=== PATIENT | female | born 1950 | race Caucasian/White ===

== ENCOUNTER → 2018-06-05 09:34 | Outpatient (CLI) | payer MEDICARE, BC, SELFPAY ==
--- OUTSIDE RECORDS SUMMARY | 2018-08-07 06:16 | XMS RPT_ITS | Clinical Summary ---
:1950 Author Organization [facility] Address [address] [place] [address] Phone Care Team Providers Name Role Phone Vidhya Snider Unavailable Unavailable Conditions or Problems Problem Problem Code Onset Status Entry Provider Comment Standard Annotate Name Date Date Description Family [id number] Jona Nelson Family history of (SNOMED CT) 07 14 Edilberto MURILLO history of cancer of cancer of colon colon Medications Medication Instructions Start Stop Generic Name NDC Provider Date Date GAVILYTE-C 240 Take as directed PEG [id number] Jona Nelson GM SOLR 3 [id number] Edilberto MURILLO [id number] LF OSTEO BI-FLEX two tablets once MISC NATURAL [id number] Jona Nelson ADV JOINT armand;y 3 PRODUCTS Edilberto MURILLO SHIELD TABS Medications Administered No information available. Allergies, Adverse Reactions, Alerts Observed no known allergies at Results Date Name Value Unit Range Flag Description Office Visit: LLQ abdominal pain MEDS REVIEW Done Documentation of current medications (procedure) FALLRSKASSES No Fall risk assessment MAMMOGRAM Normal Bilateral Breast Mammogram screening COLONOSCOPY Normal Colonoscopy (procedure) ALCOHOLCOUNS no Alcoholism counseling (procedure) ORALTOBACUSE Never Tobacco smoking status NHIS SMOK STATUS Never smoker Tobacco use [facility] Plan of Care Type Date Detail Appointment 01:10 PM Jona Casanova MD, [address], [address], [place], [address], Appointment 09:30 AM Jona Casanova MD, [address], [address], [place], [address], Pending order Colonoscopy Procedures No information available. Vital Signs Date Name Value Unit Description BMI (Body Mass Index) 31.07 kg/m2 Body Mass Index [Ratio] Body Temperature 98.3 [degF] temperature E&M Body Temperature 36.83 Nida temperature in centigrade E&M BP Diastolic 61 mm[Hg] blood pressure, diastolic - 8462-4 BP Systolic 91 mm[Hg] blood pressure, systolic - 8480-6 Heart Rate 84 /min pulse rate E&M - 8867-4 Height 64 [in_us] height E&M - 8302-2 Height 162.56 cm height in centimeters E&M Respiratory Rate 20 /min respiratory rate E&M - 9279-1 Weight Measured 181 [lb_av] weight E&M - 3141-9 Weight Measured 82.10 kg weight in kilograms E&M
--- OUTSIDE RECORDS SUMMARY | 2018-08-07 06:16 | XMS RPT_ITS | Clinical Summary ---
:1950 Author Organization [facility], [facility] Address [address] [place] [address] Phone Care Team Providers Name Role Phone Betsy Banegas MD Unavailable Conditions or Problems Problem Name Problem Onset Status Entry Provider Comment Standard Annotate Code Date Date Description Screening for 848779250 Active Betsy Stone Procedure HPV (SNOMED 05/15 05/[address]) on subject Screening for 411581945 Active Betsy Stone Screening for cervical (SNOMED 05/15 05/[address]) neoplasm of cervix Screeing for 980112206 Active Betsy Stone Screening for osteoporosis (SNOMED 05/15 05/[address]) Estrogen 159365437 Active Betsy Stone Decreased deficiency (SNOMED 05/15 05/[address]) level 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 26073415 Active Betsy Stone Gynecologic exam (SNOMED 05/15 05/[address]) Family history 641791667 Active Jona Nelson Family of cancer of (SNOMED 0 Edilberto MURILLO history of colon CT) cancer of colon Medications Medication Instructions Start Stop Generic Name NDC Provider Date Date GAVILYTE-C 240 Take as directed PEG [id number] Jona Nelson GM SOLR 3 [id number] Edilberto MURILLO [id number]-[id number] LF GAVILYTE-C 240 Take as directed / PEG 64890831136 Betsy Stone GM SOLR 3 02 [id number] Bassam MURILLO SL-QSWI-ZOAR LF OSTEO BI-FLEX two tablets once [facility] [id number] Jona Nelson ADV JOINT armand;y 3 PRODUCTS Edilberto MURILLO SHIELD TABS Medications Administered No information available. Allergies, Adverse Reactions, Alerts Observed no known allergies at Results Date Name Value Unit Range Flag Description Office Visit: LLQ abdominal pain ALCOHOLCOUNS no Alcoholism counseling (procedure) Office Visit: est annual MAMMOGRAM Normal Bilateral Breast Mammogram screening COLONOSCOPY Normal Colonoscopy (procedure) MEDS REVIEW Done Documentation of current medications (procedure) ORALTOBACUSE Never Tobacco smoking status NHIS SMOK STATUS Never smoker Tobacco use [facility] FALLRSKASSES No Fall risk assessment Lab Report: PAP I-G HPV Hi Risk ZZ-GE-unk Negative Negative GE use only - for LinkLogic import when terms are not otherwise specified Plan of Care Type Date Detail Pending order Dual-energy X-ray absorptiometry (DXA), bone density study, 1 or more sites; Pending order Colonoscopy Procedures Code Procedure Name Date Entry Date CPT-65979 Dual-energy X-ray absorptiometry (DXA), bone density study, 1 or more sites; Vital Signs Date Name Value Unit Description BMI (Body Mass Index) 31.17 kg/m2 Body Mass Index [Ratio] Body Temperature 98.2 [degF] temperature E&M Body Temperature 36.78 Nida temperature in centigrade E&M BP Diastolic 83 mm[Hg] blood pressure, diastolic - 8462-4 BP Systolic 146 mm[Hg] blood pressure, systolic - 8480-6 Heart Rate 74 /min pulse rate E&M - 8867-4 Height 64 [in_us] height E&M - 8302-2 Height 162.56 cm height in centimeters E&M Respiratory Rate 16 /min respiratory rate E&M - 9279-1 Weight Measured 181.6 [lb_av] weight E&M - 3141-9 Weight Measured 82.37 kg weight in kilograms E&M
--- OUTSIDE RECORDS SUMMARY | 2018-08-07 06:16 | XMS RPT_ITS | Clinical Summary ---
:1950 Author Organization [facility] Address [address] [place] [address] Phone Care Team Providers Name Role Phone VARINDER Payton RN, Gladis Pearl Unavailable Unavailable Conditions or Problems Problem Name Problem Onset Status Entry Provider Comment Standard Annotate Code Date Date Description Screening for 521821502 Active Betsy Stone Procedure HPV (SNOMED 05/15 05/[address]) on subject Screening for 198371254 Active Betsy Stone Screening for cervical (SNOMED 05/15 05/[address]) neoplasm of cervix Screeing for 393632503 Active Betsy Stone Screening for osteoporosis (SNOMED 05/15 05/[address]) Estrogen 967683486 Active Betsy Stone Decreased deficiency (SNOMED 05/15 05/[address]) level 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 58414277 Active Betsy Stone Gynecologic exam (SNOMED 05/15 05/[address]) Family history 256239263 Active Jona Nelson Family of cancer of (SNOMED Edilberto MURILLO history of colon CT) cancer of colon Medications Medication Instructions Start Stop Generic Name NDC Provider Date Date GAVILYTE-C 240 Take as directed PEG [id number] Jona Nelson GM SOLR 3 [id number]-DMD Edilberto MURILLO IC-GLCJ-GUCS LF GAVILYTE-C 240 Take as directed / PEG 67787658747 Betsy Stone GM SOLR 3 02 [id number]-QLZ Bassam MURILLO RF-LGOV-BTUV LF OSTEO BI-FLEX two tablets once [facility] [id number] Jona Nelson ADV JOINT armand;y 3 PRODUCTS [...] NHIS SMOK STATUS Never smoker Tobacco use [facility] FALLRSKASSES No Fall risk assessment Lab Report: PAP I-G HPV Hi Risk ZZ-GE-unk Negative Negative GE use only - for LinkLogic import when terms are not otherwise specified Plan of Care Type Date Detail Pending order Dual-energy X-ray absorptiometry (DXA), bone density study, 1 or more sites; Pending order Colonoscopy Procedures Code Procedure Name Date Entry Date CPT-64212 Dual-energy X-ray absorptiometry (DXA), bone density study, [...]
--- OUTSIDE RECORDS SUMMARY | 2018-08-07 06:16 | XMS RPT_ITS | Clinical Summary ---
:1950 Author Organization [facility], [facility] Address [address] [place] [address] Phone Care Team Providers Name Role Phone Betsy Banegas MD Unavailable Conditions or Problems Problem Name Problem Onset Status Entry Provider Comment Standard Annotate Code Date Date Description Screening for 552611017 Active Betsy Stone Procedure HPV (SNOMED 05/15 05/[address]) on subject Screening for 320331090 Active Betsy Stone Screening for cervical (SNOMED 05/15 05/[address]) neoplasm of cervix Screeing for 715090229 Active Betsy Stone Screening for osteoporosis (SNOMED 05/15 05/[address]) Estrogen 090020315 Active Betsy Stone Decreased deficiency (SNOMED 05/15 05/[address]) level 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 72881629 Active Betsy Stone Gynecologic exam (SNOMED 05/15 05/[address]) Family history 236462650 Active Jona Nelson Family of cancer of (SNOMED 0 Edilberto MURILLO history of colon CT) cancer of colon Medications Medication Instructions Start Stop Generic Name NDC Provider Date Date GAVILYTE-C 240 Take as directed PEG [id number] Jnoa Nelson GM SOLR 3 [id number] Edilberto MURILLO AJ-EIXU-VLJW LF GAVILYTE-C 240 Take as directed / PEG 39772766833 Betsy Stone GM SOLR 3 02 5318-JSA-DAR Bassam MURILLO UY-TFNZ-JEKC LF OSTEO BI-FLEX two tablets once [facility] NATURAL [id number] Jona Leslie ADV JOINT armand;y 3 PRODUCTS Edilberto MURILLO [...] NHIS SMOK STATUS Never smoker Tobacco use [facility] FALLRSKASSES No Fall risk assessment Plan of Care Type Date Detail Appointment 03:00 PM Betsy Banegas MD, [address] [facility], [address] Floor, [place], [address], Pending order Dual-energy X-ray absorptiometry (DXA), bone density study, 1 or more sites; Pending order Colonoscopy Procedures No information available. [...]
--- OUTSIDE RECORDS SUMMARY | 2018-08-07 06:16 | XMS RPT_ITS | Clinical Summary ---
:1950 Author Organization [facility], [facility] Address [address] [place] [phone] Phone Care Team Providers Name Role Phone Vidhya Snider Unavailable Unavailable Conditions or Problems Problem Problem Code Onset Status Entry Provider Comment Standard Annotate Name Date Date Description Family [id number] Jona Nelson Family history of (SNOMED CT) 07 14 Edilberto MURILLO history of cancer of cancer of colon colon Medications Medication Instructions Start Stop Generic Name NDC Provider Date Date GAVILYTE-C 240 Take as directed PEG [id number] Jona Nelson GM SOLR 3 [id number] Edilberto MURILLO HC-HDAY-OUGO LF OSTEO BI-FLEX two tablets once MISC NATURAL 08335855087 Jona Nelson ADV JOINT armand;y 3 PRODUCTS [...] NHIS SMOK STATUS Never smoker Tobacco use [facility] Plan of Care Type Date Detail Appointment 09:00 AM Jona Casanova MD, [address], [address], [place], [address], Appointment 03:00 PM Betsy Banegas MD, [address] [place] [address], Third Floor, [place], [address], Pending order Colonoscopy Procedures No information available. [...]
--- OUTSIDE RECORDS SUMMARY | 2018-08-07 06:16 | XMS RPT_ITS ---
:1950 Author Organization [facility] Care Team Providers Name Role Phone Cristopher Arriola Attending Unavailable Cristopher Arriola Primary Care Unavailable PROBLEMS PROBLEMS No Problem Records FoundPROCEDURES PROCEDURES No Procedure Records FoundRESULTS RESULTS Observed: 06/05/2018 Status: F Source: PANTHER CULTURE, URINE 9:38 AM [facility] REPOSITORY Urine Culture ORGANISM 1: Enterobacter aerogenes [place] Count >100,000 Enterobacter aerogenes: REACTION Cefazolin $ >=64 R Cefepime $ <=0.12 S Ceftazidime *NF <=1 S Ceftriaxone $ <=0.25 S Ciprofloxacin $ <=0.25 S Ertapenim $$$ <=0.12 S Gentamicin $ <=1 S Imipenem *NF 2 S Levofloxacin $ <=0.12 S Nitrofurantoin $ 64 I Piperacillin/Tazobactam $$ <=4 S Tobramycin $ <=1 S Trimethoprim/Sulfametho $ <=20 S (NF) indicates non-formulary drug at [facility]. Approval by Infectious Disease Specialist required before non-formulary drugs may be ordered and/or dispensed. Performed By: #### [id number] #### [facility] [address] [place], [address] ALLERGIES ALLERGIES DATE TYPE / CODE NAME / CODE REACTION SEVERITY SOURCE 02/26/2017 Drug No Known Unknown [facility] Allergy/4160 Allergies/F00 [facility] 78897(SNOMED 6855047(RXNOR Repository CT) M) ENCOUNTERS ENCOUNTERS ADMIT/DISCHARGE ACCOUNT ADMITTING ENCOUNTER LOCATION SOURCE NUMBER CLASS 06/05/2018 [id number] Ambulatory [address] ing:LABSPEC Repository PAYERS PAYERS ENCOUNTER GUARANTOR PAYER SUBSCRIBER SOURCE 06/05/2018 Eve Watson Primary [facility]ION [place] [id number] Insurance:MEDICARE TENNANTDOB[facility] [id number] Repository [id number]: [phone] [id number] [phone] () Date:2018-06-05 06/05/2018 Secondary [place] [place] Insurance:ANTHEMPolic TENNANTDOB: Community y Number: [id number] [id number] Repository Date:[id number] [id number] [place] [id number]: 06/05/2018 Tertiary NOT GIVENMICHOACANO Nuñez Insurance:SELF PAY [facility] Number: Effective Repository Date:2018-06-05
== END ==
PROVIDERS: Family Provider Family Medicine; PCP Family Medicine; Visit Provider Family Medicine
DX: N39.0 Urinary tract infection, site not specified (principal); R31.9 Hematuria, unspecified
CPT/HCPCS: 87077; 87086; 87088; 87186

== ENCOUNTER → 2018-07-22 10:11 | Outpatient (CLI) | payer MEDICARE, BC, SELFPAY ==
[2018-07-22 10:15] LABS: Mucous, Urine 0 SEEN /hpf (<or=2+)
[2018-07-22 12:56] LABS: Color, Urine Yellow (Yellow); Glucose, Dipstick Normal (Normal); Ketone-Dipstick Negative (Negative); Leukocyte Esterase-Dipstick 500 /ul (Negative); Nitrite-Dipstick Negative (Negative); Occult Blood-Urine 50 /ul (Negative); Protein-Dipstick 15 mg/dl (Negative); Specific Gravity, Urine 1.015 (1.002-1.030); Urine Bilirubin Dipstick Negative (Negative); Urine Clarity Sl. Cloudy (Clear); Urine Urobilinogen Normal (Normal)
[2018-07-22 13:02] LABS: Bacteria 2+ /hpf (None Seen); Red Blood Cells-Urine 0-5 SEEN /hpf (0-5); Squamous Epithelial Cells - UA 0-5 SEEN /hpf (5-10); White Blood Cells 25-50 SEEN /hpf (0-5)
== END ==
PROVIDERS: Family Provider Family Medicine; PCP Family Medicine; Visit Provider Family Medicine
DX: R31.9 Hematuria, unspecified (principal); N39.0 Urinary tract infection, site not specified
CPT/HCPCS: 81001; 87086; 87088; 87186

== ENCOUNTER → 2018-07-29 12:08 | Outpatient (CLI) | payer MEDICARE, BC, SELFPAY ==
--- NOTE | 2018-07-29 12:12 | BI_ITS ---
MAMMOGRAPHY - BILATERAL SCREENING 3-D GHASSAN SYNTHESIS REASON FOR EXAM: Female, 67 years old. Bilateral Screening 3-D tomosynthesis PERTINENT HISTORY: No significant family history. TECHNIQUE: 2-D mammograms and 3-D Ghassan synthesis of the breast (s) were performed. CAD was performed. COMPARISON: March 06, 2017 FINDINGS: The breast composition is almost entirely fat. Scattered benign calcifications are seen. No dense spiculated masses or suspicious microcalcifications are identified. No architectural distortion is identified. There is no skin thickening or retraction. There has been no significant change since the prior study. BI/SCREENING MAMM (CAD), BILAT IMPRESSION: No mammographic signs of malignancy. Routine yearly mammograms recommended. ASSESSMENT CATEGORY: BIRADS Category 2: Benign. A letter regarding these results will be sent to the patient by the facility within 30 days. FOLLOW UP RECOMMENDATION: Yearly follow up mammogram recommended. (A) Approximately 10% of breast cancers are not detected by mammography. A normal mammogram should not delay biopsy of a clinically suspicious abnormality. Electronically Signed: Alexx Hernandez MD at 13:39 EDT , Service support ,
== END ==
PROVIDERS: Family Provider Family Medicine; PCP Family Medicine; Referring Provider Family Medicine; Visit Provider Family Medicine
DX: Z12.31 Encounter for screening mammogram for malignant neoplasm of breast (principal)
CPT/HCPCS: 77063; 77067

== ENCOUNTER → 2018-08-05 16:38 | Outpatient (CLI) | payer MEDICARE, BC, SELFPAY ==
[2018-08-05 18:26] LABS: ALB/GLOB Ratio 0.8 RATIO (0.9-2.4); AST(SGOT) 24 U/L (15-37); Alanine Aminotransfer ALT/SGPT 27 U/L (13-56); Albumin, Serum 3.8 g/dL (3.2-5.0); Alkaline Phosphatase 103 U/L (45-117); Anion Gap 5 (5-15); BUN 17 mg/dL (7-18); BUN/Creat Ratio 18.4 RATIO (10-20); Calcium,Total 9.6 mg/dL (8.5-10.1); Chloride 105 mmol/L (98-107); Creatinine, Serum 0.92 mg/dL (0.55-1.02); EST Glomerular Filtration Rate 65 mL/min (>60); Est Glom Filt Rate - Afr Amer 78 mL/min (>60); Globulin 4.6 g/dL (2.2-4.2); Glucose 76 mg/dL (74-106); Lipase 160 U/L (73-393); Potassium 3.7 mmol/L (3.5-5.1); Protein, Total 8.4 g/dL (6.4-8.2); Sodium Level 140 mmol/L (136-145); Thyroid Stim Hormone (TSH) 2.64 uIU/mL (0.358-3.74)
[2018-08-07 17:38] LABS: Endomysial Antibody IgA Negative (Negative)
[2018-08-09 17:15] LABS: Immunoglobulin A 357 mg/dL (87-352); t-Transglutaminase IgA <2 U/mL (0-3)
== END ==
PROVIDERS: Family Provider Family Medicine; PCP Family Medicine; Visit Provider Family Medicine
DX: K52.9 Noninfective gastroenteritis and colitis, unspecified (principal); R10.32 Left lower quadrant pain; R11.0 Nausea
CPT/HCPCS: 36415; 80053; 82784; 83516; 83690; 84439; 84443; 86255

== ENCOUNTER → 2020-10-13 15:25 | Outpatient (CLI) | payer MEDICARE, BC, SELFPAY ==
--- NOTE | 2020-10-13 15:29 | BI_ITS ---
MAMMOGRAPHY - BILATERAL SCREENING REASON FOR EXAM: Female, 69 years old. Routine annual screening examination. PERTINENT HISTORY: Non-contributory. TECHNIQUE: Digital bilateral breast ghassan (3D mammographic acquisition) in the CC and MLO projections. 2-D mediolateral oblique (MLO) and craniocaudad (CC) views of both breasts were obtained. CAD: Full Field Digital Mammography with Computer Added Detection was performed. COMPARISON: Comparison is made with prior study of 07/29/2018 and 03/06/2017. FINDINGS: Breast Composition: There are scattered areas of fibroglandular density. There are no dominant masses or suspicious calcifications. Stable small benign appearing bilateral axillary lymph nodes. No other significant abnormalities are identified. There has been no significant change since the prior study. BI/SCRN MAMM (CAD)W/GHASSAN BILAT IMPRESSION: Stable bilateral screening mammogram. Yearly follow-up mammogram recommended. (A) ASSESSMENT CATEGORY: BIRADS Category 2: Benign. A letter regarding these results will be sent to the patient by the facility within 30 days. Approximately 10% of breast cancers are not detected by mammography. A normal mammogram should not delay biopsy of a clinically suspicious abnormality. [id number] Electronically Signed: Daryl Linares MD at 7:57 EDT , Service support ,
== END ==
PROVIDERS: PCP Family Medicine; Referring Provider Family Medicine; Visit Provider Family Medicine
DX: Z12.31 Encounter for screening mammogram for malignant neoplasm of breast (principal)
CPT/HCPCS: 77063; 77067

== ENCOUNTER 2020-12-28 15:47 | Inpatient (IN) | payer MEDICARE, BC, SELFPAY ==
[2020-12-28 15:49] VITALS: BP 166/98; PULSE 92; RESP 18; TEMP 37.2; O2SAT 97; BMI 30.5
--- NOTE | 2020-12-28 16:34 | TELEMED_ITS ---
SOC Telemed has confirmed receipt of a request for visit. This document confirms receipt of the order initiating the consult. To find the results of the consultation, please view the patient's reports for the scanned Telemed Consult.
--- NOTE | 2020-12-28 16:40 | EDS_ITS ---
HPI History of Present Illness Chief Complaint: Eye Problem Informant: patient and PCP (Dr. David) Onset/Context/Timing Location: Left Eye Onset: Weeks (1 (about 8d)) Context: Gradual Onset Timing: Continuous Current Severity: Moderate Maximum Severity: Severe Worsened by: nothing Narrative Narrative: Patient started having left eye pain and headaches that became severe, she saw her instrumentation controls engineer Dr. David and was diagnosed with herpes zoster of the left ophthalmic nerve branch only, she was started on Valtrex and later prednisone, she finished both yesterday. Symptoms are not as bad now but she started having diplopia, and was reevaluated today. He reports that she has developed a partial 6th nerve palsy and mild ptosis, concern that she may be developing a 3rd nerve palsy and these together give concern about involvement of the orbit and/or cavernous sinus for which admission to the hospital is warranted. He was unable to discuss with the neurologist, so we sent the patient to the hospital for all of this. At this time, the patient is having mo re trouble seeing out of the left eye because she was dilated in the office, she was not necessarily photophobic prior to that. Left eye pressure was 40 in the office according to the patient. She states she was given other drops. PFSH PFSH no medical history Home Medications [id number] [Osteo Bi-Flex Caplet] 2 ea PO DAILY 02/26/17 [History Last Taken Unknown] Allergy/AdvReac Type Severity Reaction Status Date / Time No Known Allergies Allergy Verified 12/28/20 15:50 Surgical History History of cholecystectomy History of hysteroscopy Social History Smoking Status: Never smoker ROS ROS ED Constitutional Constitutional ED: Denies chills or fever(s) Eyes Eyes: Reports as per HPI, change in vision, diplopia, eye pain and ptosis; Denies discharge from eye(s) ENT ENT ED: Denies discharge from eye(s), rhinorrhea or sore throat Cardiovascular Cardiovascular: Denies chest pain or palpitations Respiratory/Chest Respiratory/Chest: Denies cough or dyspnea Gastrointestinal Gastrointestinal: Denies abdominal pain, diarrhea, nausea or vomiting Genitourinary Genitourinary ED: Denies dysuria or hematuria Musculoskeletal Musculoskeletal: Denies back pain or neck pain Integumentary Denies abscess or rash Neurologic Neurologic: Reports headache(s); Denies paresthesias or weakness Psychiatric Psychiatric: Denies anxiety or suicidal thoughts EXAM Physical Exam Const Vital Signs: 12/28/20 15:49 Temperature 98.9 F Temperature Source Temporal Pulse Rate 92 Respiratory Rate 18 Blood Pressure 166/98 H Blood Pressure Mean 120 Pulse Ox 97 Oxygen Delivery Method Room Air Positive well nourished and well developed General Appearance ED: well developed and NAD HEENT Reports TM's normal bilaterally and moist mucous membranes normocephalic and atraumatic Eyes PERRL and EOMs intact bilaterally Eyes Narrative: Diffuse left bulbar conjunctival injection. Mild ptosis left upper eyelid. Eye movements grossly intact. Neck full ROM and supple Resp normal respiratory effort and clear to auscultation bilaterally Cardio regular rate, regular rhythm and no murmurs GI non-tender and non-distended Auscultation: normoactive bowel sounds Palpation: soft Back/Spine no CVA tenderness General Back: other FROM Extremity normal to inspection General Extremety ED: Negative for edema, pulses abnormal or tenderness General Extremity: Negative for edema or pulses abnormal Neuro oriented x3, CN's II-XII intact bilaterally and no sensory deficits noted Sensorium / Orientation: awake and alert Motor Exam: strength 5/5 throughout Skin no rashes or lesions noted and no wounds MDM MDM MDM Narrative Medical decision making narrative: I obtained a stat SOC neurology consult on this patient. 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 every 8 hours x7 days, and Solu- Medrol 500 mg every 12 hours x5 days and then taper in addition to getting an infectious disease consultation. I ordered initial doses of acyclovir and Solu- Medrol, and I will discuss with hospitalist for admission for further treatment and evaluation. After discussion with Dr. Crespo, she would like the MRIs performed stat which is ordered. Lab Data Attestation: I reviewed the patient's lab results. 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
[2020-12-28 16:59] VITALS: BP 178/105; PULSE 80; RESP 18; O2SAT 98
[2020-12-28 17:02] LABS: Absolute Lymphocyte Count 2.68 X10^3/uL (0.83-4.51); Absolute Neutrophil Count 5.6 X10^3/uL (2.0-7.7); Basophil# 0.05 X10^3/uL; Basophil% 0.5 % (0-1); Eosinophil# 0.06 X10^3/uL; Eosinophils% 0.6 % (0-5); Hematocrit 40.1 % (37-47); Lymphocyte # 2.68 X10^3/ul (0.83-4.51); Mean Corp Hgb Conc 32.4 g/dL (32-36); Mean Corpuscular Hgb 27.7 pg (27.0-32.0); Mean Corpuscular Volume 85.3 fL (81-99); Mean Platelet Vol. 10.4 fl (6.2-12.0); Monocyte# 0.78 X10^3/uL; Monocyte% 8.4 % (0-10); NRBC Flagged by Analyzer 0 % (0-5); Neutrophil # 5.62 X10^3/uL (2.7-7.7); Platelet Count 342 K/mm3 (150-450); RBC Distribution Width CV 14.2 % (11.6-14.6); RBC Distribution Width SD 43.6 fl (35.1-43.9); White Blood Count 9.2 K/mm3 (4.4-11.0)
[2020-12-28 17:43] LABS: Anion Gap 7 (5-15); BUN 20 mg/dL (7-18); BUN/Creat Ratio 23.1 RATIO (10-20); Calcium,Total 9.3 mg/dL (8.5-10.1); Chloride 106 mmol/L (98-107); Creatinine, Serum 0.87 mg/dL (0.55-1.02); EST Glomerular Filtration Rate 69 mL/min (>60); Est Glom Filt Rate - Afr Amer 83 mL/min (>60); Glucose 93 mg/dL (74-106); Potassium 3.3 mmol/L (3.5-5.1); Sodium Level 140 mmol/L (136-145)
--- NOTE | 2020-12-28 17:57 | HP.PCM.HOS_ITS ---
HPI - General General Date of Admission: 12/28/20 HPI Narrative CONCEPCION BELTRE, is a 70 F with a PMH as outlined who was admitted via the ED on 12/28/2020 with a complaint of left eye pain and headaches that gradually worsened. She was previously diagnosed with left ophthalmic nerve herpes zoster, and so she was started on valtrex and subsequently started on prednisone. She subsequently started having diplopia so she went back for evaluation. Her opthalmologist thtought she had developed a partial 6th nerve palsy and mild ptosis and there was concern for 3rd nerve palsy and possible involvement of the orbit and possibly cavernous sinus, so she was sent in to the ED for evaluation. She denied any nausea, vomiting, fever, chills, chest pain, palpitations, dizziness, abdominal pain, diarrhea or vomiting. Review of systems was otherwise negative. [facility] neurology was consulted and recommended MRI of the brain to evaluate her cavernous sinus. Vitals were blood pressure 178/105, pulse rate of 80, respiratory rate of 18 and she was saturating at 98% on room air. CBC was unremarkable and BMP was remarkable for potassium of 3.3. She has been admitted to be managed for 3rd nerve palsy with concerns for cavernous sinus infection. [facility] Home Medications [id number] [Osteo Bi-Flex Caplet] 2 ea PO DAILY 02/26/17 [History Last Taken Unknown] dorzolamide-timolol 22.3 mg LEFT EYE TID 12/28/20 [History Last Taken 12/28/20 15:00] melatonin 10 mg PO QHS 12/28/20 [History Last Taken Unknown] Allergy/AdvReac Type Severity Reaction Status Date / Time No Known Allergies Allergy Verified 12/28/20 15:50 Surgical History History of cholecystectomy History of hysteroscopy Social History Smoking Status: Never smoker ROS Review of Systems ROS Unobtainable: Denies due to encephalopathy Constitutional Constitutional: Denies anorexia, chills, fatigue, fever(s), malaise or weakness Eyes Eyes: Reports blurry vision, change in vision and double vision; Denies discharge from eye(s), eye pain or loss of vision ENT HEENT: Denies abnormal hearing, dysphagia, headache(s), nasal congestion, nasal discharge or sore throat Cardiovascular Cardiovascular: Denies chest pain, dyspnea on exertion, edema, lightheadedness, orthopnea, palpitations, paroxysmal nocturnal dyspnea, rapid heart rate or syncope Respiratory/Chest Respiratory/Chest: Denies cough, dyspnea, productive cough, shortness of breath at rest or shortness of breath with exertion Gastrointestinal Gastrointestinal: Denies abdominal pain, diarrhea, dyspepsia, nausea or vomiting Genitourinary Genitourinary: Denies burning urination or dysuria Musculoskeletal Musculoskeletal: Denies arthralgias, joint stiffness, joint swelling or neck pain Neurologic Neurologic: Denies abnormal speech, dizziness, focal weakness, numbness, seizures, syncope or tingling Psychiatric Psychiatric: Denies anxiety or depression Hematologic/Lymphatic Hematologic/Lymphatic: Denies anemia Vital Signs Vital Signs Vital Signs: 12/28/20 15:49 12/28/20 16:59 Temperature 98.9 F Temperature Source Temporal Pulse Rate 92 80 Respiratory Rate 18 18 Blood Pressure 166/98 H 178/105 H Blood Pressure Mean 120 129 Pulse Ox 97 98 Oxygen Delivery Method Room Air Room Air Weight Weight: 178 lb Body Mass Index (BMI) 30.5 Physical Exam Const alert, oriented x3 and no apparent distress General Appearance: cooperative HEENT normocephalic, head/scalp atraumatic, hearing grossly normal bilaterally and moist oral mucous membranes Eyes PERRL and conjunctivae normal Eyes Narrative: mild ptosis of the left eye, with mild lateral rectus muscle palsy Neck no lymphadenopathy, supple, no JVD and no carotid bruits Resp normal respiratory effort, no retractions, no use of accessory muscles and clear to auscultation bilaterally Cardio regular rate, regular rhythm, S1 normal heart sound, S2 normal heart sound and no murmurs GI normal to inspection, nondistended, normoactive bowel sounds, soft to palpation, non-tender and non-distended Extremity normal to inspection, full ROM and no clubbing, cyanosis or edema Peripheral Pulses: Yes pulses 2+ throughout Skin no rashes or lesions noted Neuro oriented x3 Sensorium / Orientation: awake and alert Psych affect normal Results Lab / Micro Data Result Diagrams: 12/29/20 06:50 12/29/20 06:50 Labs: Laboratory Results - last 24 hr 12/28/20 16:52: WBC 9.2, RBC 4.70, Hgb 13.0, Hct 40.1, MCV 85.3, MCH 27.7, MCHC 32.4, RDW Std Deviation 43.6, RDW Coeff of Arturo 14.2, Plt Count 342, MPV 10.4, Immature Gran % (Auto) 0.500, Neut % (Auto) 61.0, Lymph % (Auto) 29.0, [place] % (Auto) 8.4, Eos % (Auto) 0.6, Baso % (Auto) 0.5, Absolute Neuts (auto) 5.6, Absolute Lymphs (auto) 2.68, Nucleated RBC % 0 12/28/20 16:52: Sodium 140, Potassium 3.3 L, Chloride 106, Carbon Dioxide 27.0, Anion Gap 7, BUN 20 H, Creatinine 0.87, Estim Creat Clear Calc 52.70, Est GFR (MDRD) Af Amer 83, Est GFR (MDRD) Non-Af 69, BUN/Creatinine Ratio 23.1 H, Glucose 93, Calcium 9.3 Assessment & Plan Assessment/Plan (1) Herpes zoster ophthalmicus of left eye: (2) 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 however she had worsening of her symptoms with diplopia also. 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 BP was 178/105 at time of review * IV hydralazine prn * start oral BP meds if BP remains uncontrolled. * DVT prophylaxis: lovenox Charges/Coding Visit Charges Inpatient E&M: 61546 Init Hosp L3
--- NOTE | 2020-12-28 18:13 | MRI_ITS ---
HISTORY: Left thigh pain and diplopia, zoster ophthalmicus, CN III and palsies EXAMINATION: MR Brain WO/W Contrast TECHNIQUE: Multiplanar and multisequence MR images of the brain were obtained with and without IV gadolinium. IV Contrast dosage and agent: 16ML DOTAREM COMPARISON: None FINDINGS: BRAIN PARENCHYMA: No MRI evidence of hemorrhage. No evidence of acute infarct. No intracranial mass or mass effect. No abnormal enhancement. There is preservation of the oshea/white matter interface. Normal sella turcica, pituitary gland, infundibular stalk, optic chiasm and hypothalamus. The internal auditory canals are patent. Posterior fossa structures are unremarkable. CSF SPACES: Appropriate for age. No hydrocephalus. Basal cisterns are patent. VASCULAR SYSTEM: Normal flow voids in the major intracranial circulation. CALVARIUM, SKULL BASE, PARANASAL SINUSES AND MASTOID AIR CELLS: Clear. No discrete lytic or blastic abnormalities. ORBITS: Both globes, extraocular muscles, optic nerves and retrobulbar fat appear unremarkable. MRI/Brain W/WO Contrast IMPRESSION: Unremarkable pre and post-contrast MRI brain. at 2141 Reported and signed by: Sai Arroyo MD Electronically Signed: Sai Arroyo MD at 21:40 EDT Tel , Service support ,
--- NOTE | 2020-12-28 18:19 | NURSING ---
MED SURG ANIL LT HERPES ZOSTER OPTHALMICUS WITH CRANIAL NERVE PALSIES
--- NOTE | 2020-12-28 19:17 | ED.RN ---
pt requested not to have medications prior to MRI. Dr. Patricia aware of same.
[2020-12-28 20:46] VITALS: BP 162/104; PULSE 84; RESP 16; TEMP 36.5; O2SAT 97; O2SAT 98
[2020-12-28 21:57] VITALS: BMI 30.2
[2020-12-28 22:08] VITALS: BP 146/81; PULSE 69; RESP 18; TEMP 36.8; O2SAT 99
[2020-12-28] MEDS: 0.9% Normal Saline 1,000 ML 75 ML IV (22:34)
[2020-12-28 23:15] VITALS: PULSE 68
[2020-12-28] MEDS: Acetaminophen 325 MG Tablet 650 MG PO (23:39)
[2020-12-28] MEDS: Potassium Chloride Oral Tablet 20 MEQ 40 MEQ PO (23:39)
--- NOTE | 2020-12-28 23:49 | NURSING ---
Pandemic documentation initiated on 12/28/20 @ 8029
[2020-12-29] VITALS (8 sets, daily range): BP systolic 127–140; BP diastolic 71–87; PULSE 65–93; RESP 16–18; TEMP 36.1–37.1; O2SAT 97
[2020-12-29] MEDS: Dorzolamide HCL/Timolol 10 ml Bottle 1 DRP LEFT EYE ×4 (00:05→21:37)
[2020-12-29 07:20] LABS: Absolute Lymphocyte Count 1.06 X10^3/uL (0.83-4.51); Basophil# 0.02 X10^3/uL; Basophil% 0.2 % (0-1); Hematocrit 40.8 % (37-47); Hemoglobin 13.5 g/dL (12.0-15.0); Lymphocyte # 1.06 X10^3/ul (0.83-4.51); Mean Corp Hgb Conc 33.1 g/dL (32-36); Mean Corpuscular Hgb 28.1 pg (27.0-32.0); Mean Platelet Vol. 10.7 fl (6.2-12.0); Monocyte# 0.04 X10^3/uL; Monocyte% 0.5 % (0-10); NRBC Flagged by Analyzer 0 % (0-5); Neutrophil # 7.01 X10^3/uL (2.7-7.7); Neutrophil % 85.7 % (47-70); Platelet Count 363 K/mm3 (150-450); RBC Distribution Width CV 14.3 % (11.6-14.6); RBC Distribution Width SD 44.2 fl (35.1-43.9); White Blood Count 8.2 K/mm3 (4.4-11.0)
[2020-12-29 08:15] LABS: Anion Gap 9 (5-15); BUN 18 mg/dL (7-18); BUN/Creat Ratio 18.7 RATIO (10-20); Calcium,Total 9.3 mg/dL (8.5-10.1); Chloride 105 mmol/L (98-107); Creatinine, Serum 0.96 mg/dL (0.55-1.02); EST Glomerular Filtration Rate 61 mL/min (>60); Est Glom Filt Rate - Afr Amer 74 mL/min (>60); Estimated Creatinine Clearance 47.76 ml/min; Glucose 185 mg/dL (74-106); Potassium 4.2 mmol/L (3.5-5.1); Sodium Level 137 mmol/L (136-145)
[2020-12-29] MEDS: Enoxaparin 40 MG/0.4 ML Syringe SC (10:02)
[2020-12-29] MEDS: 0.9% Normal Saline 1,000 ML 75 ML IV (13:40)
--- NOTE | 2020-12-29 15:12 | CASEMGMT ---
VARINDER CHAU assessment: Face to Face with patient for initial transition planning/care coordination assessment. VARINDER CHAU introduced self and role at [facility], pt voices understanding and consents to assessment. Pt is A/Ox4 and answers all questions appropriately. Care providers, pharmacy, and demographics verified. Presentation: Pt sent in by Dr. David for shingles in eye Admitting dx: Herpes zoster opthalmicus PCP: [facility] Specialists: Pt states no current specialists. Preferred [facility]acy[facility] Insurance: [facility] A/B, [place] Prescription Benefit: [employer] MCR D Living Will/HPOA: Pt states has LW/HPOA and is aware that they are not on file at [facility]. Pt states her , John Swartz, is HPOA. LNOK: John Swartz, Living Arrangements: Pt states lives with in 1 story home with 1 step in and states no concerns at home. Pt states is independent with ADL's. Transportation: Pt states drives self or drives and states no transportation concerns. DME/HHC: Pt states no current DME or need for any DME. Pt states no hx of HHC or SNF. Pt states no concerns with going home at time of discharge. Pt is retired. Pt states does not smoke cigarettes but does occasionally drink ETOH. Pt states no further concerns/needs. CM to follow for any further discharge planning/needs. Advised pt to ask for CM if any further questions/concerns/needs arise, voices understanding. PT Goal: Home Plan: [place] VARINDER CHAU
--- NOTE | 2020-12-29 16:19 | PN.HOSP_ITS ---
Subjective Subjective Patient seen and examined today. She is feeling much better. Her double vision is improving. She denies any headache or blurred vision, coughing, chest pain or any weakness or numbness in any extremity. Review of systems otherwise negative. She has remained hemodynamically stable. Objective Data Objective Data Vital Signs: Vital Signs Temp Pulse Resp BP Pulse Ox 98.7 F 83 18 140/80 H 97 12/29/20 13:43 12/29/20 15:08 12/29/20 13:43 12/29/20 13:43 12/29/20 13:43 Oxygen Delivery Method Room Air Weight: 176 lb 5.917 oz Body Mass Index (BMI) 30.2 Intake & Output: Intake and Output for Last 24 Hours 12/27/20 12/28/20 12/29/20 23:59 23:59 23:59 Intake Total 1362.33 / 1362.33 2586 / 2586 Balance 1362.33 / 1362.33 2586 / 2586 Lab / Micro Data Result Diagrams: 12/29/20 06:50 12/29/20 06:50 Labs: Laboratory Results - last 24 hr 12/28/20 16:52: WBC 9.2, RBC 4.70, Hgb 13.0, Hct 40.1, MCV 85.3, MCH 27.7, MCHC 32.4, RDW Std Deviation 43.6, RDW Coeff of Arturo 14.2, Plt Count 342, MPV 10.4, Immature Gran % (Auto) 0.500, Neut % (Auto) 61.0, Lymph % (Auto) 29.0, [place] % (Auto) 8.4, Eos % (Auto) 0.6, Baso % (Auto) 0.5, Absolute Neuts (auto) 5.6, Absolute Lymphs (auto) 2.68, Nucleated RBC % 0 12/28/20 16:52: Sodium 140, Potassium 3.3 L, Chloride 106, Carbon Dioxide 27.0, Anion Gap 7, BUN 20 H, Creatinine 0.87, Estim Creat Clear Calc 52.70, Est GFR (MDRD) Af Amer 83, Est GFR (MDRD) Non-Af 69, BUN/Creatinine Ratio 23.1 H, Glucose 93, Calcium 9.3 12/29/20 06:50: WBC 8.2, RBC 4.80, Hgb 13.5, Hct 40.8, MCV 85.0, MCH 28.1, MCHC 33.1, RDW Std Deviation 44.2 H, RDW Coeff of Arturo 14.3, Plt Count 363, MPV 10.7, Immature Gran % (Auto) 0.600, Neut % (Auto) 85.7 H, Lymph % (Auto) 13.0 L, [place] % (Auto) 0.5, Eos % (Auto) 0.0, Baso % (Auto) 0.2, Absolute Neuts (auto) 7.0, Absolute Lymphs (auto) 1.06, Nucleated RBC % 0 12/29/20 06:50: Sodium 137, Potassium 4.2, Chloride 105, Carbon Dioxide 23.0, Anion Gap 9, BUN 18, Creatinine 0.96, Estim Creat Clear Calc 47.76, Est GFR (MDRD) Af Amer 74, Est GFR (MDRD) Non-Af 61, BUN/Creatinine Ratio 18.7, Glucose 185 H, Calcium 9.3 Radiography Diagnostic Testing: Radiology Impression Brain MRI 12/28/20 18:13 IMPRESSION: Unremarkable pre and post-contrast MRI brain. at 2141 Reported and signed by: Sai Arroyo MD Electronically Signed: Sai Arroyo MD at 21:40 EDT Tel , Service support , Physical Exam Const alert, oriented x3 and no apparent distress General Appearance: cooperative Exam Limitations: no limitations HEENT normocephalic, head/scalp atraumatic, hearing grossly normal bilaterally and moist oral mucous membranes Head and Scalp: normocephalic Eyes PERRL, EOMs intact bilaterally and conjunctivae normal Neck no lymphadenopathy, supple, no JVD and no carotid bruits Resp normal respiratory effort, no retractions, no use of accessory muscles and clear to auscultation bilaterally Cardio regular rate, regular rhythm, S1 normal heart sound, S2 normal heart sound and no murmurs GI normal to inspection, nondistended, normoactive bowel sounds, soft to palpation, non-tender and non-distended Extremity normal to inspection, full ROM and no clubbing, cyanosis or edema Skin no rashes or lesions noted Skin Narrative: resolving rash over left forehead, above left eye- herpes zoster rash. Neuro oriented x3, moves all extremities and no focal motor deficits Neuro Narrative: has mild ptosis of the left eyelid, with very mild lateral rectus palsy of the left eye. 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 * concern is for palsy of CN III and * MRI of hte brain was negative for any infection or thrombus in the cavernous sinus * on IV solumedrol and IV valtrex * ID and ophthalmology consulted. Per my discussion with ID, patient's diplopia is improving so he would be advisable to continue with IV medication for today. * * #Elevated BP * doesnt have a history of high blood pressure. BP was 178/105 at time of review * IV hydralazine prn * start oral BP meds if BP remains uncontrolled. * BP has improved to 120s-140s systolic. Will monitor * DVT prophylaxis: lovenox Charges/Coding Visit Charges Inpatient E&M: 04358 Subs Hosp L2
--- NOTE | 2020-12-29 19:14 | CON.PCM.ID_ITS ---
Assessment & Plan Assessment/Plan (1) Herpes zoster ophthalmicus of left eye: PLAN: on iv acyclovir, improving. No need for isolation, no open lesions. Reviewed risks and benefits, encouraged her to get covid vaccine, she is not interested. Will follow, d/w primary team, thank you. HPI Consult Data Date of Consult: 12/29/20 HPI Narrative HPI Narrative: CONCEPCION BELTRE, is a 70 F who presented with double vision. Developed L eye pain 12/19/20, saw eye doctor 12/20, dx with HSV/VZV infection. Started on steroids and valtrex. Developed rash on L forehead with ear involvement. Rash resolved without blistering or crusting. No prior h/o shingles. No other lesion. No fever or chills. Has not gotten covid vaccine. Took valtrex for a week, then developed double vision. Came to ED, admitted on acyclovir iv, feeling a little better today. Full ROS performed and neg except as noted above. PFSH Home Medications [id number] [Osteo Bi-Flex Caplet] 2 ea PO DAILY 02/26/17 [History Last Taken Unknown] dorzolamide-timolol 22.3 mg LEFT EYE TID 12/28/20 [History Last Taken 12/28/20 15:00] melatonin 10 mg PO QHS 12/28/20 [History Last Taken Unknown] Allergy/AdvReac Type Severity Reaction Status Date / Time No Known Allergies Allergy Verified 12/28/20 15:50 Surgical History History of cholecystectomy History of hysteroscopy Social History Smoking Status: Never smoker Physical Exam Const alert, oriented x3 and no apparent distress General Appearance: cooperative HEENT normocephalic and head/scalp atraumatic Eyes PERRL Neck supple and No nodes Resp normal air movement and clear to auscultation bilaterally Cardio regular rate and regular rhythm GI normal to inspection, nondistended, normoactive bowel sounds Extremity no clubbing, cyanosis or edema Skin no rashes or lesions noted Neuro Neuro Narrative: some disconjugate gaze with eye movement Lab / Micro Data Result Diagrams: 12/29/20 06:50 08/18/21 06:50 Labs: Laboratory Results - last 24 hr 12/29/20 06:50: WBC 8.2, RBC 4.80, Hgb 13.5, Hct 40.8, MCV 85.0, MCH 28.1, MCHC 33.1, RDW Std Deviation 44.2 H, RDW Coeff of Arturo 14.3, Plt Count 363, MPV 10.7, Immature Gran % (Auto) 0.600, Neut % (Auto) 85.7 H, Lymph % (Auto) 13.0 L, [place] % (Auto) 0.5, Eos % (Auto) 0.0, Baso % (Auto) 0.2, Absolute Neuts (auto) 7.0, Absolute Lymphs (auto) 1.06, Nucleated RBC % 0 12/29/20 06:50: Sodium 137, Potassium 4.2, Chloride 105, Carbon Dioxide 23.0, Anion Gap 9, BUN 18, Creatinine 0.96, Estim Creat Clear Calc 47.76, Est GFR (MDRD) Af Amer 74, Est GFR (MDRD) Non-Af 61, BUN/Creatinine Ratio 18.7, Glucose 185 H, Calcium 9.3 Radiology Impression Brain MRI 12/28/20 18:13 IMPRESSION: Unremarkable pre and post-contrast MRI brain. at 2141 Reported and signed by: Sai Arroyo MD Electronically Signed: Sai Arroyo MD at 21:40 EDT Tel , Service support ,
[2020-12-30] VITALS (7 sets, daily range): BP systolic 123–142; BP diastolic 76–89; PULSE 76–93; RESP 16–18; TEMP 36.4–36.6; O2SAT 94–97
[2020-12-30] MEDS: Dorzolamide HCL/Timolol 10 ml Bottle 1 DRP LEFT EYE (06:09)
[2020-12-30 06:44] LABS: Absolute Lymphocyte Count 1.16 X10^3/uL (0.83-4.51); Absolute Neutrophil Count 15.9 X10^3/uL (2.0-7.7); Basophil# 0.01 X10^3/uL; Basophil% 0.1 % (0-1); Hematocrit 37.7 % (37-47); Hemoglobin 12.1 g/dL (12.0-15.0); Lymphocyte # 1.16 X10^3/ul (0.83-4.51); Lymphocyte % 6.7 % (19-41); Mean Corp Hgb Conc 32.1 g/dL (32-36); Mean Corpuscular Hgb 27.6 pg (27.0-32.0); Mean Corpuscular Volume 85.9 fL (81-99); Mean Platelet Vol. 11.1 fl (6.2-12.0); Monocyte# 0.19 X10^3/uL; Monocyte% 1.1 % (0-10); NRBC Flagged by Analyzer 0 % (0-5); Neutrophil # 15.94 X10^3/uL (2.7-7.7); Neutrophil % 91.3 % (47-70); Platelet Count 344 K/mm3 (150-450); RBC Distribution Width CV 14.6 % (11.6-14.6); RBC Distribution Width SD 44.8 fl (35.1-43.9); Red Blood Count 4.39 M/mm3 (4.2-5.4); White Blood Count 17.4 K/mm3 (4.4-11.0)
[2020-12-30 07:07] LABS: Anion Gap 6 (5-15); BUN 22 mg/dL (7-18); BUN/Creat Ratio 24.3 RATIO (10-20); Calcium,Total 8.9 mg/dL (8.5-10.1); Chloride 112 mmol/L (98-107); Creatinine, Serum 0.91 mg/dL (0.55-1.02); EST Glomerular Filtration Rate 65 mL/min (>60); Est Glom Filt Rate - Afr Amer 79 mL/min (>60); Estimated Creatinine Clearance 50.38 ml/min; Glucose 164 mg/dL (74-106); Potassium 4.2 mmol/L (3.5-5.1); Sodium Level 142 mmol/L (136-145)
[2020-12-30] MEDS: Enoxaparin 40 MG/0.4 ML Syringe SC (08:39)
--- NOTE | 2020-12-30 10:28 | PCM.PN.ID ---
Physical Exam Narrative Double vision improving, no fever Const alert General Appearance: cooperative Resp normal air movement and clear to auscultation bilaterally Cardio regular rate and regular rhythm GI normal to inspection, nondistended, normoactive bowel sounds Skin no rashes or lesions noted ID ID: Route of nutrition/ use of supplements: [] Nutritional Intake: [] IV Site: [] Hutton Catheter: [] Assessment & Plan Assessment/Plan (1) Herpes zoster ophthalmicus of left eye: PLAN: on iv acyclovir, improving. No need for isolation, no open lesions. Reviewed risks and benefits, encouraged her to get covid vaccine, she is not interested. Ok for home with one more week valtrex, wrote rx. Will follow as needed, d/w primary team
--- NOTE | 2020-12-30 11:11 | DS.PCM_ITS ---
Providers Date of Admission: 12/28/20 Primary Care Physician: Dr. Cristopher Arriola MD Consultations 12/28/20 18:55 Consult: Ophthamology Routine Consulting Provider: Mason David Reason for Consult: herpes zoster ophthalmicus EMERGENT Consult: No Notified: Yes Date Notified: 12/28/20 Time Notified: 08:35 Method of Notification: office 12/28/20 18:56 Consult: Infectious Disease Routine Consulting Provider: John Cheng Reason for Consult: herpes zoster ophthalmicus EMERGENT Consult: No Notified: Yes Date Notified: 12/28/20 Time Notified: 08:03 Method of Notification: Text Reason For Visit: HERPES ZOSTER OPHTHALMICUS Diagnosis Discharge Diagnosis (1) Herpes zoster ophthalmicus of left eye: Status: Acute Code(s): B02.30 - Zoster ocular disease, unspecified Medications at Discharge Home Medications Osteo Bi-Flex Triple Strength 2 ea PO DAILY 02/26/17 dorzolamide-timolol 22.3 mg LEFT EYE TID 12/28/20 melatonin 10 mg PO QHS 12/28/20 valacyclovir [Valtrex] 1,000 mg PO TID #20 tab 12/30/20 Hospital Course Operations None Procedures None Summary of Care Provided Minutes Spent on Discharge: 45 Hospital Course: CONCEPCION BELTRE, is a 70 F with a PMH as outlined who was a dmitted via the ED on 12/28/2020 with a complaint of left eye pain and headaches that gradually worsened. She was previously diagnosed with left ophthalmic nerve herpes zoster, and so she was started on valtrex and subsequently started on prednisone. She subsequently started having diplopia so she went back for evaluation. Her opthalmologist thought she had developed a partial 6th nerve palsy and mild ptosis and there was concern for 3rd nerve palsy and possible involvement of the orbit and possibly cavernous sinus, so she was sent in to the ED for evaluation. She denied any nausea, vomiting, fever, chills, chest pain, palpitations, dizziness, abdominal pain, diarrhea or vomiting. Review of systems was otherwise negative. [facility] neurology was consulted and recommended MRI of the brain to evaluate her cavernous sinus. Vitals were blood pressure 178/105, pulse rate of 80, respiratory rate of 18 and she was saturating at 98% on room air. CBC was unremarkable and BMP was remarkable for potassium of 3.3. She was admitted to be managed for herpes zoster ophthalmicus with concern for CN III and palsy and cavernous sinus infection/thrombosis. Neurology was consulted, as well as ophthalmology. She was started on IV solumedrol and IV valtrex. She had an MRI of the brain which was unremarkable and showed no evidence of cavernous sinus thrombosis or infection. Her symptoms gradually improved and she felt much better. She remained stable and was discharged home on a 6 day course of oral valtrex 1000mg tid. 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 Patient seen and examined prior to discharge. She felt much better and had no complaints. Her diplopia was improving. Review of systems otherwise negative. Labs and vitals reviewed. Home meds reviewed and reconciled. Physical Exam Const alert, oriented x3 and no apparent distress General Appearance: cooperative and comfortable Exam Limitations: no limitations HEENT normocephalic, head/scalp atraumatic, hearing grossly normal bilaterally and moist oral mucous membranes Eyes PERRL and conjunctivae normal Eyes Narrative: mild ptosis of the left eye and mild lateral rectus muscle palsy have improved significantly. Neck no lymphadenopathy, supple, no JVD and no carotid bruits Resp normal respiratory effort, no retractions, no use of accessory muscles and clear to auscultation bilaterally Cardio regular rate, regular rhythm, S1 normal heart sound, S2 normal heart sound and no murmurs GI normal to inspection, nondistended, normoactive bowel sounds, soft to palpation, non-tender and non-distended Extremity normal to inspection, full ROM and no clubbing, cyanosis or edema Skin no rashes or lesions noted Skin Narrative: resolving rash over left forehead, above left eye- herpes zoster rash. Neuro oriented x3, moves all extremities and no focal motor deficits Neuro Narrative: mild ptosis of the left eyelid with very mild lateral rectus palsy of the left eye have resolved. Sensorium / Orientation: awake and alert Psych affect normal Weight / BMI Weight Weight: 176 lb 5.917 oz Body Mass Index (BMI) 30.2 ABG / Lab / Microbiology Data Result Diagrams: 12/30/20 06:00 12/30/20 06:00 Laboratory: Laboratory Results - last 24 hr 12/30/20 06:00: WBC 17.4 H, RBC 4.39, Hgb 12.1, Hct 37.7, MCV 85.9, MCH 27.6, MCHC 32.1, RDW Std Deviation 44.8 H, RDW Coeff of Arturo 14.6, Plt Count 344, MPV 11.1, Immature Gran % (Auto) 0.800, Neut % (Auto) 91.3 H, Lymph % (Auto) 6.7 L, [place] % (Auto) 1.1, Eos % (Auto) 0.0, Baso % (Auto) 0.1, Absolute Neuts (auto) 15.9 H, Absolute Lymphs (auto) 1.16, Nucleated RBC % 0 12/30/20 06:00: Sodium 142, Potassium 4.2, Chloride 112 H, Carbon Dioxide 24.0, Anion Gap 6, BUN 22 H, Creatinine 0.91, Estim Creat Clear Calc 50.38, Est GFR (MDRD) Af Amer 79, Est GFR (MDRD) Non-Af 65, BUN/Creatinine Ratio 24.3 H, Glucose 164 H, Calcium 8.9 D/C Instructions Discharge Diet: Low fat / Low cholesterol Discharge Activity: Return to Normal Activity Weight Bearing Status: Weight bearing as tolerated Call your doctor if you observe: Fever of 101 or Higher and - (worsening diplopia, change in visionm worsening headache) Meaningful Use Info Meaningful Use Diagnoses (Choose all that apply): None applicable Discharge Plan Admission Admit Date/Time: 12/28/20 18:13 Primary Reason for Your Visit: herpes zoster ophthalmicus Attending Provider: Renee Crespo Primary Care Provider: Cristopher Arriola Consulting Providers: John Cheng ; Mason David Instructions Patient Instructions: Herpes, Understanding Sixth Nerve Palsy, Treatment for Sixth Nerve Palsy Discharge Orders/Prescriptions Prescriptions: New valacyclovir [Valtrex] 1 gram tablet 1,000 mg PO TID Qty: 20 RF: 0 Continued Osteo Bi-Flex Triple Strength 1 EACH tablet 2 ea PO DAILY RF: 0 melatonin 10 mg Tablet 10 mg PO QHS RF: 0 dorzolamide-timolol 22.3 mg LEFT EYE TID RF: 0 Referrals / Follow Up: Mason David MD [STAFF PHYSICIAN] - In 1 Day (follow up with Dr David as scheduled tomorrow) Cristopher Arriola MD [Primary Care Provider] - Within 2 Weeks Disposition Disposition (needs filled in before D/C Order can be placed): Home, Self Care Charges/Coding Visit Charges Inpatient E&M: 49762 Disch Hosp
--- NOTE | 2020-12-30 12:26 | PHA.DC.MC ---
Pharmacy Service has performed discharge medication reconciliation and counseling for this patient. The patient was counseled on the following discharge medications and changes in medications for homegoing were reviewed. 1. MEDROL DOSEPAK 2. VALTREX The Reason for Use, instructions for use, and potential side effects were reviewed for all new medications. The patient's questions regarding all of their medications were answered. The patient was able to verbally demonstrate an understanding of their discharge medications. Home Medications Osteo Bi-Flex Triple Strength 2 ea PO DAILY 02/26/17 dorzolamide-timolol 22.3 mg LEFT EYE TID 12/28/20 melatonin 10 mg PO QHS 12/28/20 methylprednisolone [Medrol (Campos)] 4 mg PO UD #21 tab 12/30/20 valacyclovir [Valtrex] 1,000 mg PO TID #20 tab 12/30/20
== END 2020-12-30 12:55 | disposition home or self-care (01) | DRG 125 ==
LOC: ED 17:58 → PCU 20:33
PROVIDERS: Admitting Provider Student in an Organized Health Care Education/Training Program; Emergency Provider Emergency Medicine; PCP Family Medicine; Visit Provider Student in an Organized Health Care Education/Training Program
DX: B02.30 Zoster ocular disease, unspecified (principal); H49.22 Sixth [abducent] nerve palsy, left eye; H02.432 Paralytic ptosis of left eyelid; H49.02 Third [oculomotor] nerve palsy, left eye; R03.0 Elevated blood-pressure reading, without diagnosis of hypertension
CPT/HCPCS: 36415; 70553; 80048; 85025; 99284; A9575; J7030; J7050; A4216; J2930

== ENCOUNTER → 2021-11-03 | Outpatient (CLI) | payer MEDICARE, BC, SELFPAY ==
[2021-11-03 15:48] LABS: ALB/GLOB Ratio 1.1 RATIO (0.9-2.4); AST(SGOT) 21 U/L (15-37); Alanine Aminotransfer ALT/SGPT 20 U/L (13-56); Albumin, Serum 3.7 g/dL (3.2-5.0); Alkaline Phosphatase 66 U/L (45-117); Anion Gap 6 (5-15); BUN 11 mg/dL (7-18); BUN/Creat Ratio 11.6 RATIO (10-20); Calcium,Total 9.3 mg/dL (8.5-10.1); Chloride 109 mmol/L (98-107); Cholesterol 178 mg/dL (200); Creatinine, Serum 0.95 mg/dL (0.55-1.02); EST Glomerular Filtration Rate 62 mL/min (>60); Est Glom Filt Rate - Afr Amer 75 mL/min (>60); Globulin 3.3 g/dL (2.2-4.2); Glucose 93 mg/dL (74-106); High Density Lipoprotein 76 mg/dL; Potassium 3.8 mmol/L (3.5-5.1); Sodium Level 142 mmol/L (136-145); Triglycerides 78 mg/dL; Very Low Density Lipoprotein 16 mg/dL (5-40)
== END | disposition home or self-care (01) ==
LOC: MTLAB 13:13
PROVIDERS: PCP Family Medicine; Referring Provider Family Medicine; Visit Provider Family Medicine
DX: Z00.00 Encounter for general adult medical examination without abnormal findings (principal); E78.5 Hyperlipidemia, unspecified
CPT/HCPCS: 36415; 80053; 80061

== ENCOUNTER → 2021-11-08 | Outpatient (CLI) | payer MEDICARE, BC, SELFPAY ==
--- NOTE | 2021-11-08 14:15 | BI_ITS ---
MAMMOGRAPHY - BILATERAL SCREENING REASON FOR EXAM: Female, 70 years old. Routine annual screening examination. PERTINENT HISTORY: Non-contributory. TECHNIQUE: Digital bilateral breast gahssan (3D mammographic acquisition) in the CC and MLO projections. 2-D mediolateral oblique (MLO) and craniocaudad (CC) views of both breasts were obtained. CAD: Full Field Digital Mammography with Computer Added Detection was performed. COMPARISON: Comparison is made with prior study dated 10/13/2020 and 07/29/2018. FINDINGS: Breast Composition: There are scattered areas of fibroglandular density. There are no dominant masses or suspicious calcifications. Stable small benign-appearing bilateral axillary lymph nodes. No other significant abnormalities are identified. There has been no significant change since the prior study. BI/SCRN MAMM (CAD)W/GHASSAN BILAT IMPRESSION: Stable bilateral screening mammogram. Yearly follow-up mammogram recommended. (A) ASSESSMENT CATEGORY: BIRADS Category 2: Benign. A letter regarding these results will be sent to the patient by the facility within 30 days. Approximately 10% of breast cancers are not detected by mammography. A normal mammogram should not delay biopsy of a clinically suspicious abnormality. [id number] Electronically Signed: Daryl Linares MD at 15:11 EDT ,
--- NOTE | 2021-11-08 14:16 | BD_ITS ---
STUDY: DUAL ENERGY X-RAY ABSORPTIOMETRY / DXA REASON FOR EXAM: Female, 70 years old. M810. Patient is postmenopausal. TECHNIQUE: Bone Mineral Density (BMD) measurements of lumbar spine and bilateral hips were obtained. COMPARISON: Comparison is made with prior study 03/22/2017. FINDINGS: Lumbar Spine (L1-L4): g/cm2 (0.901) / T-score (-1.3) / Z-score (0.8) Findings are suggestive of osteopenia with a low fracture risk. Left Femur Total: g/cm2 (0.808) / T-score (-1.1) / Z-score (0.4) Left Femoral Neck: g/cm2 (0.625) / T-score (-2.0) / Z-score (-0.2) Right Femur Total: g/cm2 (0.715) / T-score (-1.9) / Z-score (-0.4) Right Femoral Neck: g/cm2 (0.614) / T-score (-2.1) / Z-score (-0.3) The T-Scores on the most recent prior examination were: Lumbar Spine (L1-L4): There has been worsening of bone density since the previous examination. Left Femur Total: which represents an improvement of 0.4%. Right Femur Total: which represents a worsening of 7.3%. BD/Dexa Bone Density Study IMPRESSION: The patient is considered osteopenic as outlined below according to World [place] Organization (WHO) criteria with a moderate fracture risk. There has been worsening of bone density since the previous examination. Reference Information: The T-score is the number of standard deviations above or below the standard which is normal for young adults at their peak bone mineral density. The World Health Organization (WHO) interprets the T-scores as follows: Above -1 Normal bone density Between -1 and -2.5 Osteopenia Equal to / or below -2.5 Osteoporosis As a practical clinical guideline, osteopenia may be graded as follows: Mild -1 through -1.5 Moderate -1.6 through -2.0 Severe -2.1 through -2.4 The Z-score is the number of standard deviations above or below age-matched controls. A Z-score of less than -1.5 would be considered abnormal. References: 1. NIH Osteoporosis and Related Bone Diseases www osteo.org 2. International Society for Clinical Densitometry www iscd.org 3. National Osteoporosis Foundation www nof.org Electronically Signed: Daryl Linares MD at 14:04 EDT ,
== END | disposition home or self-care (01) ==
LOC: OPBI 14:12
PROVIDERS: PCP Family Medicine; Visit Provider Family Medicine
DX: Z12.31 Encounter for screening mammogram for malignant neoplasm of breast (principal); Z13.820 Encounter for screening for osteoporosis; Z78.0 Asymptomatic menopausal state
CPT/HCPCS: 77063; 77067; 77080

== ENCOUNTER 2022-09-19 06:47 | Day surgery (SDC) | payer MEDICARE, BC, SELFPAY ==
[2022-09-19] VITALS (7 sets, daily range): BP systolic 93–138; BP diastolic 66–92; PULSE 63–74; RESP 16–18; TEMP 36.4–36.5; O2SAT 96–98; BMI 29.5
[2022-09-19] MEDS: Lactated Ringers 1,000 ML 15 ML IV (07:13)
--- NOTE | 2022-09-19 07:43 | HP.PCM_ITS ---
HPI - General HPI Narrative CONCEPCION BELTRE, is a 71 F who presents for screening colonoscopy. Her last colonoscopy was 5 years ago and was normal. She has colonoscopies every 5 years due to family history of colon cancer in her father and both grandparents. She denies any abdominal pain or blood in the stool. [facility] Medical History Herpes zoster ophthalmicus of left eye History of diverticulitis History of humerus fracture Non-smoker Psoriasis Seasonal allergies Wears glasses Home Medications glucosamine 750 ha-jkjdectkcmt-fen no1 644 mg-C 30 mg-sai 1 mg tablet (Osteo Bi-Flex Triple Strength) 2 ea PO DAILY Check with primary doctor 02/26/17 [History Last Taken Unknown] melatonin 10 mg tablet 10 mg PO QHS Check with primary doctor 12/28/20 [History Last Taken Unknown] diphenhydramine 25 mg-acetaminophen 500 mg tablet (Tylenol PM Extra Strength) 1 tab PO QHS PRN Insomnia 06/27/22 [History Last Taken Unknown] loratadine 10 mg tablet 10 mg PO DAILY 09/14/22 [History Last Taken Unknown] Allergy/AdvReac Type Severity Reaction Status Date / Time No Known Allergies Allergy Verified 09/19/22 07:00 Family History (Updated 06/27/22 @ 16:19 by Gia Cuello) Father Colon cancer Grandmother Colon cancer Grandfather Colon cancer Surgical History History of cholecystectomy History of hysteroscopy Hx of colonoscopy Social History (Updated 06/27/22 @ 16:24 by Gia Cuello) household members: spouse current occupational status: retired 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 Smoking Status: Never smoker alcohol intake: never Past Medical/Surgical History Planned Operation Planned Operative Procedure/s: COLONOSCOPY S.O.S: No Previous Hospitalizations/Surgeries HX Hospitalizations: No HX of Surgeries: trigger finger release ring and middle right hand gallbladder jesse left arm colonoscopy hysteroscopy d&c Any Problems With Anesthesia: No You/Your Family Experience Fever (Hyperthermia) With Anes: No Cholinesterase deficiency: No Cardiovascular Hx Chest Pain within Last 2 months: No Hx of Irregular Heartbeat and/or Afib: No Hx Heart Attack: No Hx Congestive Heart Failure: No Hx Rheumatic Fever: No Hx Hypertension: No Hx Internal Defibrillator: No Hx Pacemaker: No Hx Cardiac Catheterization: No Hx Cardiac Surgery/Stents/Etc.: No Hx Stress Test: No Hx Pain in Legs when Walking/Leg Cramps: No Respiratory Chronic Cough: No HX of Shortness of Breath: Yes (sob with 2 flights of stairs) Hoarseness: No Hx Chronic Obstructive Pulmonary Disease (COPD): No Hx Asthma: No Hx Emphysema: No Hx Sleep Apnea: No CPAP: No BIPAP: No Hx Respiratory Tract Infection/Cold (presently): No Do You Snore Loudly (louder than talking or can be heard): No Do You Often Feel Tired/ Fatigued/ Sleepy Dring Daytime?: No Has Anyone Observed You Stop Breathing During Sleep?: No Result (for STOP score): Negative Hx Smoking: No Smoking Status: Never smoker Gastrointestinal Hx Gastroesophageal Reflux: No Hx Gastrointestinal Disorders: No Hx Gastrointestinal Bleed: No Hx Ulcer: No Hx Hiatal Hernia: No Difficulty Chewing/Swallowing: No Special diet followed at home: No Hx Unplanned Weight Loss of 20#: No HX Unplanned Weight Gain of 20#: No Neurological Hx Seizures: No HX Syncope/Blackout Spells/Unconsciousness: Yes (vaso vagal with iv and blood draws) Hx Transient Ischemic Attacks (TIA): No Hx Multiple Sclerosis: No Hx Parkinson's Disease: No Hx Head/Neck Injury: No Hx Headaches: No Hx Back Injury/Pain: Yes (lower back pain at times) Recent Onset of Speech Difficulty: No Restless Legs: No Does patient have nerve stimulator: No Blood Disorder Hx Leukemia: No Bleeding Tendencies: No Hx Deep Vein Thrombosis: No Hx High Cholesterol: No Blood Transmitted Disease: No Hx Hepatitis: No Hx Cirrhosis: No Hx Anemia: Yes (in the past) Hx Blood Disorders: No Reproduction : No Is Patient Lactating: No Hx Hysterectomy: No Hx Tubal Ligation: No Are You Post Menopause: Yes Genitourinary Hx Renal Disease: No Musculoskeletal Hx Arthritis: Yes Hx Rheumatoid Arthritis: No Hx Gout: No Recent Onset of an Orthopedic Problem: No Endocrine Hx Diabetes: No Thyroid Disease: No Hx Steroid Therapy: No Psycho/Social Hx Substance Use: No Hx Alcohol Use: Yes (occ) Hx Anxiety: No Hx Depression: No Mental Illness: No Hx Dementia: No Miscellaneous Hx Cancer: No Recent Exposure to Contagious Disease: No Hx of C-Diff: No Any Loose Teeth: No Allergies No Known Allergies Allergy (Verified 09/19/22 07:00) Discharge Is Pt Admitted From a Jail, or a [place] [facility]: No Who Could Help: KATY After D/C, Where Do you Plan to Go: Return Home From the [facility] History Number of Risk Factors: 3 Vital Signs Vital Signs Vital Signs: 09/19/22 07:15 09/19/22 07:15 Temperature 97.6 F L Temperature Source Temporal Pulse Rate 74 Respiratory Rate 17 Respiratory Pattern Normal Blood Pressure 138/92 H Blood Pressure Mean 107 Blood Pressure Source Monitor Blood Pressure Position Semi-Fowlers Blood Pressure Location Left Arm Pulse Ox 97 Oxygen Delivery Method Room Air Weight Weight: 171 lb 15.369 oz Body Mass Index (BMI) 29.5 Physical Exam Const alert and oriented x3 HEENT normocephalic Eyes PERRL Resp normal respiratory effort and normal air movement Cardio regular rate and regular rhythm GI soft to palpation, non-tender and non-distended Extremity normal to inspection Assessment & Plan Assessment/Plan (1) Encounter for screening for malignant neoplasm of colon: PLAN: I explained endoscopy in detail to the patient. I explained the risks including but not limited to stroke or heart attack with anesthesia, perforation of the GI tract, bleeding, infection. I explained that any of these could necessitate further emergency surgery. The patient understands and all questions were answered sufficiently. The patient wishes to proceed with procedure. Hugh Allen MD Pager: [facility] [address] [place] [address], [address] [place] [address] Office: Surgery Risks - Colonoscopy Risks Include but are not Limited To: Risks include but are not limited to: Bleeding, perforation requiring further surgery, inability to complete colonoscopy requiring barium enema.
--- NOTE | 2022-09-19 08:20 | OP.COLON_ITS ---
Patient Name: Jaquelin Swartz Procedure Date: 09/19/2022 7:48 AM Date of : 1950 Age: 71 Procedure: Colonoscopy Indications: Colon cancer screening in patient at increased risk: Colorectal cancer in father, Colon cancer screening in patient at increased risk: Family history of colorectal cancer in multiple 2nd degree relatives Providers: Hugh Allen MD Medicines: Monitored Anesthesia Care Patient Profile: This is a 71 year old female. Refer to note in patient chart for documentation of history and physical. Last Colonoscopy: 5 years ago. Complications: No immediate complications. Procedure: Pre-Anesthesia Assessment: - Prior to the procedure, a History and Physical was performed, and patient medications and allergies were reviewed. The patient's tolerance of previous anesthesia was also reviewed. The risks and benefits of the procedure and the sedation options and risks were discussed with the patient. All questions were answered, and informed consent was obtained. Prior Anticoagulants: The patient has taken no previous anticoagulant or antiplatelet agents. After reviewing the risks and benefits, the patient was deemed in satisfactory condition to undergo the procedure. After I obtained informed consent, the scope was passed under direct vision. Throughout the procedure, the patient's blood pressure, pulse, and oxygen saturations were monitored continuously. The Colonoscope was introduced through the anus and advanced to the cecum, identified by appendiceal orifice and ileocecal valve. The colonoscopy was performed without difficulty. The patient tolerated the procedure well. The quality of the bowel preparation was good. Scope In: 7:55:41 AM Scope Withdrawal Time 0 hours 5 minutes 22 seconds Scope Out: 8:11:28 AM Total Procedure Duration Time 0 hours 15 minutes 47 seconds Findings: The entire examined colon appeared normal on direct and retroflexion views. Impression: - The entire examined colon is normal on direct and retroflexion views. - No specimens collected. Recommendation: - Discharge patient to home. - Resume previous diet. - Continue present medications. - Repeat colonoscopy in 5 years for screening purposes. Procedure Code(s): --- Professional --- 12063, Colonoscopy, flexible; diagnostic, including collection of specimen(s) by brushing or washing, when performed (separate procedure) Diagnosis Code(s): --- Professional --- Z80.0, Family history of malignant neoplasm of digestive organs CPT copyright 2017 [employer]. All rights reserved. The codes documented in this report are preliminary and upon yoker review may be revised to meet current compliance requirements. Hugh Allen MD 09/19/2022 8:19:55 AM This report has been signed electronically. Number of Addenda: 0 Note Initiated On: 09/19/2022 7:48 AM
--- NOTE | 2022-09-19 08:21 | OP.CCLET_ITS ---
09/19/2022 Katty Penn [place] [address] [place] [address] Re : Colonoscopy procedure for Jaquelin Sheridan Dear Dr. Penn This procedure was performed on Monday, September 19, 2022. My impressions and recommendations are as follows: Impressions : - The entire examined colon is normal on direct and retroflexion views. - No specimens collected. Recommendations : - Discharge patient to home. - Resume previous diet. - Continue present medications. - Repeat colonoscopy in 5 years for screening purposes. My findings are described in the full procedure note, which is enclosed. If I can be of further assistance, please feel free to contact me at Doctor phone number(s): , Work: . Sincerely, Hugh Allen MD 09/19/2022 8:19:55 AM This report has been signed electronically.
== END 2022-09-19 09:04 | disposition home or self-care (01) ==
LOC: EN 06:48 → AC 06:50
PROVIDERS: PCP Family Medicine; Referring Provider Surgery; Visit Provider Surgery
PROC: 0DJD8ZZ Inspection of Lower Intestinal Tract, Via Natural or Artificial Opening Endoscopic (ICD-10-PCS; CPT 45378; principal; 2022-09-19 07:55)
DX: Z12.11 Encounter for screening for malignant neoplasm of colon (principal); Z80.0 Family history of malignant neoplasm of digestive organs
CPT/HCPCS: G0121; J7120; J2405

== ENCOUNTER → 2023-01-26 | Outpatient (CLI) | payer MEDICARE, BC, SELFPAY ==
[2023-01-26 12:05] LABS: Absolute Lymphocyte Count 1.58 X10^3/uL (0.83-4.51); Absolute Neutrophil Count 2.6 X10^3/uL (2.0-7.7); Basophil# 0.03 X10^3/uL; Basophil% 0.6 % (0-1); Eosinophil# 0.08 X10^3/uL; Eosinophils% 1.7 % (0-5); Hemoglobin 13.2 g/dL (12.0-15.0); Lymphocyte # 1.58 X10^3/ul (0.83-4.51); Lymphocyte % 33.7 % (19-41); Mean Corp Hgb Conc 31.4 g/dL (32-36); Mean Corpuscular Volume 85.9 fL (81-99); Mean Platelet Vol. 11.2 fl (6.2-12.0); Monocyte# 0.36 X10^3/uL; Monocyte% 7.7 % (0-10); NRBC Flagged by Analyzer 0 % (0-5); Neutrophil # 2.62 X10^3/uL (2.7-7.7); Neutrophil % 55.9 % (47-70); Platelet Count 310 K/mm3 (150-450); RBC Distribution Width CV 13.7 % (11.6-14.6); RBC Distribution Width SD 42.7 fl (35.1-43.9); Red Blood Count 4.89 M/mm3 (4.2-5.4); White Blood Count 4.7 K/mm3 (4.4-11.0)
[2023-01-26 12:39] LABS: AST(SGOT) 27 U/L (15-37); Alanine Aminotransfer ALT/SGPT 32 U/L (13-56); Albumin, Serum 3.9 g/dL (3.2-5.0); Alkaline Phosphatase 90 U/L (45-117); Anion Gap 6 (5-15); BUN 19 mg/dL (7-18); BUN/Creat Ratio 20.9 RATIO (10-20); Calcium,Total 9.3 mg/dL (8.5-10.1); Chloride 109 mmol/L (98-107); Creatinine, Serum 0.91 mg/dL (0.55-1.02); EST Glomerular Filtration Rate 65 mL/min (>60); Est Glom Filt Rate - Afr Amer 78 mL/min (>60); Globulin 3.9 g/dL (2.2-4.2); Glucose 101 mg/dL (74-106); Potassium 3.9 mmol/L (3.5-5.1); Protein, Total 7.8 g/dL (6.4-8.2); Sodium Level 141 mmol/L (136-145); T4 Free Direct 0.96 ng/dL (0.76-1.46); Thyroid Stim Hormone (TSH) 1.71 uIU/mL (0.358-3.74)
[2023-01-29 16:09] LABS: Thyroglobulin Antibody < 1.0 IU/mL (0.0-0.9); Thyroid Peroxidase AB 9 IU/mL (0-34)
== END | disposition home or self-care (01) ==
LOC: BFHLAB 10:58
PROVIDERS: PCP Family Medicine; Referring Provider Family Medicine; Visit Provider Family Medicine
DX: Z00.00 Encounter for general adult medical examination without abnormal findings (principal); E03.9 Hypothyroidism, unspecified; H04.123 Dry eye syndrome of bilateral lacrimal glands; L40.9 Psoriasis, unspecified
CPT/HCPCS: 36415; 80053; 84439; 84443; 84481; 85025; 86376; 86800

== ENCOUNTER → 2023-01-30 | Outpatient (CLI) | payer MEDICARE, BC, SELFPAY ==
--- NOTE | 2023-01-30 10:02 | BI_ITS ---
MAMMOGRAPHY - BILATERAL SCREENING REASON FOR EXAM: Female, 72 years old. Routine annual screening examination. PERTINENT HISTORY: Non-contributory. TECHNIQUE: Digital bilateral breast ghassan (3D mammographic acquisition) in the CC and MLO projections. 2-D mediolateral oblique (MLO) and craniocaudad (CC) views of both breasts were obtained. CAD: Full Field Digital Mammography with Computer Added Detection was performed. COMPARISON: Comparison is made with prior study dated November 08, 2021 and October 13, 2020. FINDINGS: Breast Composition: There are scattered areas of fibroglandular density. There are no dominant masses or suspicious calcifications. Stable benign appearing bilateral axillary lymph nodes. No other significant abnormalities are identified. There has been no significant change since the prior study. BI/SCRN MAMM (CAD)W/GHASSAN BILAT IMPRESSION: Stable bilateral screening mammogram. Yearly follow-up mammogram recommended. (A) ASSESSMENT CATEGORY: BIRADS Category 2: Benign. A letter regarding these results will be sent to the patient by the facility within 30 days. Approximately 10% of breast cancers are not detected by mammography. A normal mammogram should not delay biopsy of a clinically suspicious abnormality. [id number] Electronically Signed: Daryl Linares MD at 10:45 EDT ,
== END | disposition home or self-care (01) ==
LOC: OPBI 10:01
PROVIDERS: PCP Family Medicine; Referring Provider Family Medicine; Visit Provider Family Medicine
DX: Z12.31 Encounter for screening mammogram for malignant neoplasm of breast (principal)
CPT/HCPCS: 77063; 77067

== ENCOUNTER → 2024-02-08 | Outpatient (CLI) | payer MEDICARE, BC, SELFPAY ==
--- NOTE | 2024-02-08 10:06 | BI_ITS ---
MAMMOGRAPHY - BILATERAL SCREENING REASON FOR EXAM: Female, 73 years old. Routine annual screening examination. PERTINENT HISTORY: Non-contributory. TECHNIQUE: Digital bilateral breast ghassan (3D mammographic acquisition) in the CC and MLO projections. 2-D mediolateral oblique (MLO) and craniocaudad (CC) views of both breasts were obtained. CAD: Full Field Digital Mammography with Computer Added Detection was performed. COMPARISON: Comparison is made with prior study January 30, 2023 and October 31, 2021. FINDINGS: Breast Composition: There are scattered areas of fibroglandular density. There are no dominant masses or suspicious calcifications. Stable bilateral fat containing axillary lymph nodes. No other significant abnormalities are identified. There has been no significant change since the prior study. BI/SCRN MAMM (CAD)W/GHASSAN BILAT IMPRESSION: Stable bilateral screening mammogram. Yearly follow-up mammogram recommended. (A) ASSESSMENT CATEGORY: BIRADS Category 2: Benign. A letter regarding these results will be sent to the patient by the facility within 30 days. Approximately 10% of breast cancers are not detected by mammography. A normal mammogram should not delay biopsy of a clinically suspicious abnormality. [id number] Electronically Signed: Daryl Linares MD at 11:17 EDT ,
== END | disposition home or self-care (01) ==
LOC: OPBI 10:04
PROVIDERS: PCP Family Medicine; Referring Provider Family Medicine; Visit Provider Family Medicine
DX: Z12.31 Encounter for screening mammogram for malignant neoplasm of breast (principal)
CPT/HCPCS: 77063; 77067

== ENCOUNTER → 2025-01-29 | Outpatient (CLI) | payer MEDICARE, SELFPAY ==
--- NOTE | 2025-01-29 12:58 | RAD_ITS ---
PROCEDURE: HIP, UNI W/ PELVIS 2-3 VIEWS 01/29/2025 REASON FOR EXAM: PAIN IN RIGHT HIP TECHNIQUE: Procedure Code: RAD Modality: DX Procedure: HIP, UNI W/ PELVIS 2-3 VIEWS Laterality: COMPARISON: None FINDINGS: Degenerative changes of the right hip. No fracture. No dislocation. SI joints are symmetrical. Large amount of stool in the colon. RAD/HIP, UNI W/ Pelvis 2-3 Views IMPRESSION: Degenerative changes of the right hip . No acute fracture. Reading Location: [id number]
[2025-01-29 15:34] LABS: AST(SGOT) 26 U/L (<=31); Alanine Aminotransfer ALT/SGPT 19 U/L (<=34); Albumin, Serum 4.2 g/dL (3.4-4.8); Alkaline Phosphatase 89 U/L (35-104); Anion Gap 12 (5-15); BUN 16 mg/dL (4-19); BUN/Creat Ratio 17.0 RATIO (10-20); Calcium,Total 9.9 mg/dL (7.6-11.0); Carbon Dioxide 25.2 mmol/L (21.0-32.0); Chloride 104 mmol/L (98-108); Cholesterol 182 mg/dL (<=200); Globulin 3.2 g/dL (2.2-4.2); Glucose 94 mg/dL (70-99); Low Density Lipoprotein Calc. 74 mg/dL; Potassium 4.2 mmol/L (3.3-5.1); Triglycerides 129 mg/dL; Very Low Density Lipoprotein 26 mg/dL (5-40); cholesterol:hdl ratio screen 2.21
[2025-01-29 16:06] LABS: Hematocrit 38.9 % (37-47); Hemoglobin 12.8 g/dL (12.0-15.0); Immature Granulocytes Count 0.020 X10^3/uL (0.0-0.0); Mean Corp Hgb Conc 32.9 g/dL (32-36); Mean Corpuscular Volume 84.6 fL (81-99); Mean Platelet Vol. 11.7 fl (6.2-12.0); NRBC Flagged by Analyzer 0 % (0-5); Platelet Count 319 K/mm3 (150-450); RBC Distribution Width CV 13.9 % (11.6-14.6); RBC Distribution Width SD 43.0 fl (35.1-43.9); Red Blood Count 4.60 M/mm3 (4.2-5.4); White Blood Count 5.5 K/mm3 (4.4-11.0)
--- OUTSIDE RECORDS SUMMARY | 2025-01-29 17:06 | XMS RPT_ITS | CCD ---
Author Organization [facility] Inform ion Partnership [facility] Care Team Providers Care Orthotic Technician Name Role Phone Betsy Banegas MD Unavailable [phone] Unavailable Primary Care Provider MATTHEW Carpenter Attending Unavailable Katty Penn Referring Unavailable Katty Penn Attending Unavailable Katty Penn Primary Care Unavailable Allergies Allergy Classification Reported Allergen(s) Allergy Type Date of Onset Reaction(s) Facility Unclassified (2 sources) Homeopathic Products; Translations: [HOMEOPATHIC PRODUCTS] Propensity to adverse reactions 08-17-2006 [facility] Medications Current Medications Medication Drug Class(es) Dates Sig (Normalized) Sig (Original) acetaminophen 500 mg / diphenhydrAMINE hydrochloride 25 mg oral tablet (2 sources) Histamine-1 Receptor Antagonist Start: 06-27-2022 take 1 tablet by mouth at bedtime Diphenhydramine-A cetaminophen (Tylenol Pm Extra Strength) 25-500 mg tablet Active 1 TABLET PO AT BEDTIME June 27, 2022 1:00am aspirin 81 mg delayed release oral tablet (1 source) Platelet Aggregation Inhibitor, Nonsteroidal Anti-inflammatory Drug Start: 11-07-2012 take 1 tablet by mouth once daily aspirin, enteric coated (ASPIR-LOW) 81 mg EC tablet Take 1 tablet by mouth once daily. 0 11/07/2012 Active benoxinate hydrochloride 4 mg/ml / fluorescein sodium 3 mg/ml ophthalmic solution (1 source) Diagnostic Dye Start: 10-10-2023 End: 10-10-2023 fluorescein-benox inate 0.3-0.4 % 1 Drop (FLURESS) GLUC VALLES/CHONDRO VALLES A/VIT C/MN (GLUCOSAMINE CHONDROITIN MAXSTR ORAL) (1 source) GLUC VALLES/CHONDRO AVLLES A/VIT C/MN (GLUCOSAMINE CHONDROITIN MAXSTR ORAL) Take by mouth. 0 Active Snkdtplx-Wgkz-Cvd8-C- Arnel-Bosw (Osteo Bi-Flex Triple Strength) 1 EACH tablet (4 sources) Start: 02-26-2017 take 1 tablet by mouth once daily Qrsatcgz-Hgyq-Nrc 8-V-Rtdw-Bosw (Osteo Bi-Flex Triple Strength) 1 EACH tablet Active 2 EACH PO DAILY February 26, 2017 12:00am loratadine 10 mg oral tablet (2 sources) Start: 09-14-2022 take 10 mg by mouth once daily Loratadine Active 10 MG PO DAILY September 14, 2022 12:00am melatonin 10 mg oral tablet (5 sources) Start: 12-28-2020 take 10 mg by mouth at bedtime Melatonin Active 10 MG PO AT BEDTIME December 28, 2020 12:00am melatonin 10 mg cap Take by mouth. 0 Active methylPREDNISolone 4 mg oral tablet (2 sources) Corticosteroid Start: 12-30-2020 Methylprednisolone (Medrol (Campos)) 4 mg tablets,dose pack Active 4 MG PO DIRECTED December 30, 2020 12:00am phenylephrine hydrochloride 25 mg/ml ophthalmic solution (1 source) alpha-1 Adrenergic Agonist Start: 10-10-2023 End: 10-10-2023 PHENYLephrine 2.5 % 1 Drop (AK-DILATE, BOSTON-SYNEPHRINE) proparacaine hydrochloride 5 mg/ml ophthalmic solution (1 source) Local Anesthetic Start: 10-10-2023 End: 10-10-2023 proparacaine 0.5 % 1 Drop (ALCAINE) tropicamide 10 mg/ml ophthalmic solution (1 source) Anticholinergic Start: 10-10-2023 End: 10-10-2023 tropicamide 1 % 1 Drop (MYDRIACYL) valACYclovir 1000 mg oral tablet (2 sources) Herpesvirus Nucleoside Analog DNA Polymerase Inhibitor, Herpes Simplex Virus Nucleoside Analog DNA Polymerase Inhibitor, Herpes Zoster Virus Nucleoside Analog DNA Polymerase Inhibitor Start: 12-30-2020 Valacyclovir (Valtrex) 1 gram tablet Active 1000 MG PO THREE TIMES A DAY December 30, 2020 12:00am vit D3/vit K2/olive leaf ext (OSTEOBLOX CF ORAL) (1 source) vit D3/vit K2/ol louise leaf ext (OSTEOBLOX CF ORAL) Take by mouth. 0 Active Completed/Discontinued Medications Medication Drug Class(es) Dates Sig (Normalized) Sig (Original) dorzolamide / Timolol (4 sources) Carbonic Anhydrase Inhibitor, beta-Adrenergic Brian Start: 12-28-2020 End: 06-27-2022 take 22.3 mg into the eye(s) three times daily dorzolamide-timolol Discontinued 22.3 MG LEFT EYE THREE TIMES A DAY December 28, 2020 12:00am June 27, 2022 5:24pm Start: 12-28-2020 take 22.3 mg into th e eye(s) three times daily dorzolamide-timolol Active 22.3 MG LEFT EYE THREE TIMES A DAY December 28, 2020 12:00am [facility] NATURAL PRODUCTS (2 sources) Start: 02-13-2017 OSTEO BI-FLEX ADV JOINT SHIELD TABS two tablets once armand;y [facility] [employer] [phone] Jona Casanova MD POLYETHYLENE GLYCOL [id number] MG / Potassium Chloride 2980 MG / Sodium Bicarbonate 6720 MG / Sodium Chloride 5840 MG / sodium sulfate 05861 MG Powder for Oral Solution (4 sources) Osmotic Laxative Start: 02-13-2017 End: 03-15-2017 GAVILYTE-C 240 GM SOLR Take as directed PEG 1037-IIM-ALAYF-NACL-[place] [facility] [id number] Jona Casanova MD Problems Active Problems Problem Classification Problem Date Documented Date Episodic/Chronic Allergic reactions (1 source) Contact dermatitis; Translations: [Unspecified contact dermatitis due to other agents] 09-12-2006 Episodic Other connective tissue disease (1 source) Eosinophilia myalgia syndrome; 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 Other eye disorders (4 sources) Abducens nerve palsy; Translations: [Sixth [abducent] nerve palsy, left eye] 01-07-2021 Episodic Other nervous system disorders (1 source) Carpal tunnel syndrome; Translations: [Carpal tunnel syndrome, unspecified upper limb] Onset: 11-02-2006 11-02-2006 Chronic Other screening for suspected conditions (not mental disorders or infectious disease) (3 sources) Patient encounter status; Translations: [Encounter for screening for malignant neoplasm of colon] Onset: 03-03-2024 06-27-2022 Episodic Retinal detachments; defects; vascular occlusion; and retinopathy (2 sources) Macular hole of right eye; Translations: [Macular cyst, hole, or pseudohole, right eye] 10-10-2023 Chronic Unclassified (2 sources) Screening for malignant neoplasm of cervix ; Translations: [Encounter for screening for malignant neoplasm of cervix] Onset: 03-15-2017 03-15-2017 Unclassified (2 sources) Screening for osteoporosis ; Translations: [Other specified health status] Onset: 03-15-2017 03-15-2017 Unclassified (2 sources) Gynecologic examination ; Translations: [Encounter for gynecological examination (general) (routine) without abnormal findings] Onset: 03-15-2017 03-15-2017 Past or Other Problems Problem Classification Problem Date Documented Date Episodic/Chronic Fracture of lower limb (1 source) Closed fracture of cuneiform bone of foot; Translations: [Closed fracture of cuneiform bone of foot] Onset: 11-24-2009 11-24-2009 Episodic Immunizations and screening for infectious disease (2 sources) Encounter for screening for human papillomavirus (HPV); Translations: [Encounter for screening for human papillomavirus (HPV)] Onset: 03-15-2017 03-15-2017 Episodic Menopausal disorders (2 sources) Decreased estrogen level; Translations: [Other primary ovarian failure] Onset: 03-15-2017 03-15-2017 Episodic Nonmalignant breast conditions (1 source) Pain of breast; Translations: [Mastodynia] Onset: 03-09-2009 03-09-2009 Episodic Other connective tissue disease (4 sources) Triggering of digit; Translations: [Trigger finger, unspecified finger] Onset: 03-09-2009 Resolved: 09-12-2011 09-12-2011 Episodic Other non-traumatic joint disorders (1 source) Hip pain; Translations: [Pain in unspecified hip] Onset: 03-09-2009 03-09-2009 Episodic Other skin disorders (1 source) Sebaceous cyst of skin; Translations: [Sebaceous cyst] Onset: 11-08-2012 11-08-2012 Episodic Unclassified (2 sources) Family history of cancer of colon; Translations: [Family history of malignant neoplasm of digestive organs] Onset: 02-13-2017 02-13-2017 Episodic Results Test Name Value Interpretation Reference Range Facility SCRN MAMM (CAD)W/GHASSAN BILATo n 02-08-2024 SCRN MAMM (CAD)W/GHASSAN BILAT [facility] Imaging Services [address] [place], [place] [address] SCRN MAMM (CAD)W/GHASSAN BILAT MR#: [id number] Acct: [id number] Name: CONCEPCION BELTRE Rep #: [id number] : 1950 F 73 From: Daryl avery MD PCP: Dr. Katty Penn MD Status: [facility] Study: SCRN MAMM (CAD)W/GHASSAN BILAT Date of Exam: 01/13 12/04 Exam# [id number] Ordering Dr: Katty Penn MD :[id number] MAMMOGRAPHY - BILATERAL SCREENING REASON FOR EXAM: Female, 73 years old. Routine annual screening examination. PERTINENT HISTORY: Non-contributory. TECHNIQUE: Digital bilateral breast ghassan (3D mammographic acquisition) in the CC and MLO projections. 2-D mediolateral oblique (MLO) and craniocaudad (CC) views of both breasts were obtained. CAD: Full Field Digital Mammography with Computer Added Detection was performed. COMPARISON: Comparison is made with prior study January 30, 2023 and October 31, 2021. FINDINGS: Breast Composition: There are scattered areas of fibroglandular density. There are no dominant masses or suspicious calcifications. Stable bilateral fat containing axillary lymph nodes. No other significant abnormalities are identified. There has been no significant change since the prior study. BI/SCRN MAMM (CAD)W/GHASSAN BILAT IMPRESSION: Stable bilateral screening mammogram. Yearly follow-up mammogram recommended. (A) ASSESSMENT CATEGORY: BIRADS Category 2: Benign. A letter regarding these results will be sent to the patient by the facility within 30 days. Approximately 10% of breast cancers are not detected by mammography. A normal mammogram should not delay biopsy of a clinically suspicious abnormality. [id number] Electronically Signed: Daryl Linares MD at 11:17 EDT , CC: Dr. Katty Penn MD Top Frame Maker: Signed Normal [facility] OCT MACULA CIRRUS OU (BOTH E YES)on 10-10-2023 [facility] Radiology Study observation (narrative) [facility] Absolute lymphocyte countOrd ered By: Katty Penn on 01-26-2023 Lymphocytes Auto (Unsp spec) [#/Vol] 1.58 10*3/uL 0.83-4.51 [facility] Basophil percentageOrdered B y: Katty Penn on 01-26-2023 Basophils/100 WBC (Bld) 0.6 % 0-1 [facility] Bilirubin [Mass/Vol] 0.40 mg/dL 0.20-1.00 [facility] Comment on above: For patients on eltr ombopag therapy, use of Dimension Diamond TBIL is not recommended. Chloride [Moles/Vol] 109 mmol/L 98-107 [facility] Eosinophils/100 WBC (Bld) 1.7 % 0-5 [facility] Glucose [Mass/Vol] 101 mg/dL 74-106 [facility] Comment on above: Fasting Glucose resu lt from 100 to 125 mg/dL suggests IMPAIRED HOMEOSTASIS per A.D.A. criteria. Neutrophils (Bld) [#/Vol] 2.6 10*3/uL 2.0-7.7 [facility] Neutrophils/100 WBC (Bld) 55.9 % 47-70 [facility] Potassium [Moles/Vol] 3.9 mmol/L 3.5-5.1 [facility] Protein [Mass/Vol] 7.8 g/dL 6.4-8.2 [facility] Sodium [Moles/Vol] 141 mmol/L 136-145 [facility] WBC (Bld) [#/Vol] 4.7 10*3/uL 4.4-11.0 [facility] Blood erythrocytes count (nu mber/volume)Ordered By: Katty Penn on 01-26-2023 RBC (Bld) [#/Vol] 4.89 10*6/uL 4.2-5.4 [facility] Blood hemoglobin measurement (mass/volume)Ordered By: Katty Penn on 01-26-2023 Hemoglobin (Bld) [Mass/Vol] 13.2 g/dL 12.0-15.0 [facility] Blood lymphocytes/100 leukoc ytesOrdered By: Katty Penn on 01-26-2023 Lymphocytes/100 WBC (Bld) 33.7 % 19-41 [facility] Blood monocytes/100 leukocyt esOrdered By: Katty Penn on 01-26-2023 Monocytes/100 WBC (Bld) 7.7 % 0-10 [facility] Blood platelet mean volumeOr dered By: Katty Penn on 01-26-2023 Platelet mean volume (Bld) [Entitic vol] 11.2 fL 6.2-12.0 [facility] Determination of erythrocyte mean corpuscular volume (MCV)Ordered By: Katty Penn on 01-26-2023 MCV (RBC) [Entitic vol] 85.9 fL 81-99 [facility] Hematocrit Auto (Bld) [Volum e fraction]Ordered By: Katty Penn on 01-26-2023 Hematocrit (Bld) [Volume fraction] 42.0 % 37-47 [facility] Laboratory - Chemistry and C hemistry - challengeOrdered By: Katty Penn on 01-26-2023 ALP [Catalytic activity/Vol] 90 U/L 45-117 [facility] ALT [Catalytic activity/Vol] 32 U/L 13-56 [facility] CO2 [Moles/Vol] 26.0 mmol/L 21.0-32.0 [facility] Free T4 [Mass/Vol] 0.96 ng/dL 0.76-1.46 [facility] Globulin (S) [Mass/Vol] 3.9 g/dL 2.2-4.2 [facility] Urea nitrogen/Creatinine [Mass ratio] 20.9 mg/mg 10-20 [facility] Laboratory - Hematology and Cell countsOrdered By: Katty Penn on 01-26-2023 Erythrocyte distribution width (RBC) [Entitic vol] 42.7 fL 35.1-43.9 [facility] Erythrocyte distribution width (RBC) [Ratio] 13.7 % 11.6-14.6 [facility] Immature granulocytes/100 WBC (Bld) 0.400 % 0.0-0.9 [facility] Comment on above: IG% - Immature Granu locytes (promyelocytes, myelocytes and metamyelocytes) > 1% indicates that a LEFT SHIFT is Present. MCH (RBC) [Entitic mass] 27.0 pg 27.0-32.0 [facility] Nucleated RBC/100 WBC (Bld) [Ratio] 0 % 0-5 [facility] MCHC Auto (RBC) [Mass/Vol]Or dered By: Katty Penn on 01-26-2023 MCHC (RBC) [Mass/Vol] 31.4 g/dL 32-36 [facility] No Panel InformationOrdered By: Katty Penn on 01-26-2023 Estimated GFR (MDRD) Amer 78 mL/min >60 [facility] Comment on above: GFR Calc Estimated GFR (MDRD) Non-Af Amer 65 mL/min >60 [facility] Comment on above: Non- GFR Calc Free Triiodothyronine (T3) pg/dL 3.0 pg/mL 2.18-3.98 [facility] Thyroglobulin Antibody < 1.0 IU/mL 0.0-0.9 [facility] Comment on above: Thyroglobulin Antibo dy measured by PlananaMethodologyPerformed at: - [facility] [address] [id number] Director: Luis Antonio Mcgarry PhD, Phone: [phone] Thyroid Stimulating Hormone (TSH) 1.71 uIU/mL 0.358-3.74 [facility] Platelets bldOrdered By: Tony Penn on 01-26-2023 Platelets (Bld) [#/Vol] 310 10*3/uL 150-450 [facility] Serum or plasma albumin ronaldo urement (mass/volume)Ordered By: Katty Penn on 01-26-2023 Albumin [Mass/Vol] 3.9 g/dL 3.2-5.0 [facility] Serum or plasma albumin/glob ulin mass ratioOrdered By: Katty Interesa on 01-26-2023 Albumin/Globulin [Mass ratio] 1.0 {ratio} 0.9-2.4 [facility] Serum or plasma calcium ronaldo urement (mass/volume)Ordered By: Katty Penn on 01-26-2023 Calcium [Mass/Vol] 9.3 mg/dL 8.5-10.1 [facility] Serum or plasma creatinine m easurement (mass/volume)Ordered By: Katty Penn on 01-26-2023 Creatinine [Mass/Vol] 0.91 mg/dL 0.55-1.02 [facility] Comment on above: The validity of the calculated GFR & GFRAA in patients over 70 years has not been determined. Clinical correlation is essential. Serum or plasma thyroperoxid ase antibody assay (units/volume)Ordered By: Katty Penn on 01-26-2023 TPO Ab Qn 9 [IU]/mL 0-34 [facility] Serum or plasma urea nitroge n measurement (mass/volume)Ordered By: Katty Penn on 01-26-2023 Urea nitrogen [Mass/Vol] 19 mg/dL 7-18 [facility] Thin prep Papanicolaou smear with manual screeningOrdered By: Katty Penn on 01-26-2023 Thin prep Papanicolaou smear with manual screening 27 U/L 15-37 [facility] Thin prep Papanicolaou smear with manual screening 6 5-15 [facility] Basophil percentageon 2021 Bilirubin [Mass/Vol] 0.60 mg/dL 0.20-1.00 [facility] Work Phone: Comment on above: For patients on eltr ombopag therapy, use of Dimension Diamond TBIL is not recommended. Chloride [Moles/Vol] 109 mmol/L 98-107 [facility] Work Phone: Cholesterol [Mass/Vol] 178 mg/dL <200 [facility] Work Phone: [phone] Comment on above: <200 mg/dL Desirable 200-240 mg/dL Borderline >240 mg/dL High Risk Glucose [Mass/Vol] 93 mg/dL 74-106 [facility] Work Phone: [phone] Potassium [Moles/Vol] 3.8 mmol/L 3.5-5.1 [facility] Work Phone: [phone] Protein [Mass/Vol] 7.0 g/dL 6.4-8.2 [facility] Work Phone: [phone] Sodium [Moles/Vol] 142 mmol/L 136-145 [facility] Work Phone: [phone] Triglyceride [Mass/Vol] 78 mg/dL <199 [facility] Work Phone: [phone] Comment on above: The drugs N-Acetylcy steine and Metamizole may falsely depress this assay.Serum Triglycerides Reference Interval Normal <150 mg/dL Borderline high 150 - 199 mg/dL High 200 - 499 mg/dL Very High > or = 500 mg/dL Laboratory - Chemistry and C hemistry - challengeon 11-03-2021 ALP [Catalytic activity/Vol] 66 U/L 45-117 [facility] Work Phone: ALT [Catalytic activity/Vol] 20 U/L 13-56 [facility] Work Phone: [phone] CO2 [Moles/Vol] 27.0 mmol/L 21.0-32.0 [facility] Work Phone: [phone] Globulin (S) [Mass/Vol] 3.3 g/dL 2.2-4.2 [facility] Work Phone: [phone] Urea nitrogen/Creatinine [Mass ratio] 11.6 mg/mg 10-20 [facility] Work Phone: No Panel Informationon 11-03 Estimated GFR (MDRD) Amer 75 mL/min >60 [facility] Work Phone: [phone] Comment on above: GFR Calc Estimated GFR (MDRD) Non-Af Amer 62 mL/min >60 [facility] Work Phone: Comment on above: Non- GFR Calc Serum or plasma albumin ronaldo urement (mass/volume)on 11-03-2021 Albumin [Mass/Vol] 3.7 g/dL 3.2-5.0 [facility] Work Phone: Serum or plasma albumin/glob ulin mass ratioon 11-03-2021 Albumin/Globulin [Mass ratio] 1.1 {ratio} 0.9-2.4 [facility] Work Phone: Serum or plasma calcium ronaldo urement (mass/volume)on 11-03-2021 Calcium [Mass/Vol] 9.3 mg/dL 8.5-10.1 [facility] Work Phone: Serum or plasma cholesterol in HDL measurement (mass/volume)on 11-03-2021 Cholesterol in HDL [Mass/Vol] 76 mg/dL >40 [facility] Work Phone: Comment on above: The drugs N-Acetylcy steine and Metamizole may falsely depress this assay. Reference Range HDL <40 mg/dL Low HDL Cholesterol HDL >or= 60 mg/dL High HDL Cholesterol Serum or plasma cholesterol in VLDL measurement (mass/volume)on 11-03-2021 Cholesterol in VLDL [Mass/Vol] 16 mg/dL 5-40 [facility] Work Phone: Serum or plasma creatinine m easurement (mass/volume)on 11-03-2021 Creatinine [Mass/Vol] 0.95 mg/dL 0.55-1.02 [facility] Work Phone: Comment on above: The validity of the calculated GFR & GFRAA in patients over 70 years has not been determined. Clinical correlation is essential. Serum or plasma low density lipoprotein (LDL) cholesterol measurement (mass/volume)on 11-03-2021 Cholesterol in LDL [Mass/Vol] 86 mg/dL 0-130 [facility] Work Phone: Serum or plasma urea nitroge n measurement (mass/volume)on 11-03-2021 Urea nitrogen [Mass/Vol] 11 mg/dL 7-18 [facility] Work Phone: Thin prep Papanicolaou smear with manual screeningon 11-03-2021 Thin prep Papanicolaou smear with manual screening 21 U/L 15-37 [facility] Work Phone: Thin prep Papanicolaou smear with manual screening 6 5-15 [facility] Work Phone: Lab Report: PAP I-G HPV Hi R iskon 03-21-2017 HPV HC,HGH RISK Negative Invalid Interpretation Code Negative [facility] Office Visit: est annualon 1 05-15-2016 Documentation of current medications (procedure) Done Invalid Interpretation Code [facility] Fall risk assessment No Invalid Interpretation Code [facility] Tobacco smoking status NHIS Never Invalid Interpretation Code [facility] Tobacco use CPHS Never smoker Invalid Interpretation Code [facility] Office Visit: est annualon 1 Colonoscopy (procedure) Colonoscopy (procedure) Invalid Interpretation Code [facility] Office Visit: LLQ abdominal painon 02-13-2017 Alcoholism counseling (procedure) no Invalid Interpretation Code [facility] Office Visit: est annualon 1 Breast Mammogram screening Normal Bilateral Invalid Interpretation Code [facility] Vital Signs Date Time Vital Sign Value Performing Clinician Griselda cole 11-08-2021 14:19-0400 Body height 162.56 cm [facility] Work Phone: 03-15-2017 15:03-0400 BMI (Body Mass Index) 31.17 kg/m2 Betsy Banegas MD [facility] 03-15-2017 15:03-0400 Body Temperature 98.2 [degF] Betsy Banegas MD [facility] 03-15-2017 15:03-0400 BP Diastolic 83 mm[Hg] Betsy Banegas MD [facility] 03-15-2017 15:03-0400 BP Systolic 146 mm[Hg] Betsy Banegas MD [facility] 03-15-2017 15:03-0400 Height 162.56 cm Betsy Banegas MD [facility] 03-15-2017 15:03-0400 Pulse (Heart Rate) 74 /min Betsy Banegas MD [facility] 03-15-2017 15: Respiratory Rate 16 /min Betsy Banegas MD [facility] 03-15-2017 15:0400 Weight 82.37 kg Betsy Banegas MD [facility] Department Encounters Encounter Date Encounter Type Care Provider Facility Start: 02-08-2024 End: 02-08-2024 ambulatory Katty Penn Facility:[facility] Start: 10-10-2023 End: 10-10-2023 ambulatory MATTHEW CHACKO Facility:[facility] Start: 10-10-2023 End: 10-10-2023 Patient encounter procedure Matthew Chacko MD Work Phone: Ophthalmology Comment on above: Macular hole of righ t eye (Primary Dx); Lamellar macular hole of left eye Start: 01-30-2023 End: 01-30-2023 ambulatory [facility] Work Phone: Start: 01-30-2023 End: 01-30-2023 Patient encounter procedure [facility] Work Phone: Start: 01-26-2023 End: 01-26-2023 ambulatory [facility] Work Phone: Start: 01-26-2023 End: 01-26-2023 Patient encounter procedure [facility] Start: 11-08-2021 End: 11-08-2021 Patient encounter procedure [facility] Start: 11-03-2021 End: 11-03-2021 [facility] Procedures Date Procedure Procedure Detail Performing Clinician Start: 10-10-2023 Computerized ophthal luis imaging retina Matthew Chacko MD Work Phone: Start: 01-30-2023 Screening mammography Start: 11-08-2021 Dual energy X-ray absorptiometry Start: 11-08-2021 Screening mammography Start: 03-15-2017 End: 03-21-2017 Dxa bone density study 1/> sites axial skel Betsy Banegas MD Work Phone: Start: 10-30-2012 Lipid 1996 panel - S balaji or Plasma Matthew Chacko MD Work Phone: Start: 08-31-2011 Colonoscopy Matthew emanuel MD Work Phone: Plan of Treatment Date Care Activity Detail Author Start: 10-24-2024 End: 04-02-2025 OCT MACULA CIRRUS OU (BOTH EYES) OCT MACULA CIRRUS OU (BOTH EYES) [facility] Imaging Routine Macular hole of right eye Lamellar macular hole of left eye Expected: 10/24/2024, Expires: 04/02/2025 [facility] Work Phone: Comment on above: Expected: 10/24/2024 , Expires: 04/02/2025 Start: 01-13-2024 Influenza vaccination Influenz a Vaccine (Season Ended) [facility] Start: 11-09-2023 End: 11-09-2023 Patient encounter procedure 11/09/2023 8:00 AM EDT Office Visit [facility] Ophthalmology [address] [place] [address] Matthew Chacko MD [address] [place], [place] [id number] *4 W, [facility] OD F/U, DFE/OCT/OCT-A Ophthalmology Comment on above: *4 W, [facility] OD F/U, DF E/OCT/OCT-A Start: 05-14-2023 Advance Directive Discussion Advance Directive Discussion [facility] Start: 05-14-2023 Behavioral Health Screening Behavioral Health Screening [facility] Start: 01-12-2023 Covid-19 Vaccine ( season) Covid-19 Vaccine ( season) [facility] Start: 10-20-2022 Pneumococcal Vaccine : 65+ (2 of 2 - PCV) Pneumococcal Vaccine: 65+ (2 of 2 - PCV) [facility] Start: 03-09-2019 Urine microalbumin profile DTaP,Tdap,Td Vaccine (3 - Td or Tdap) [facility] Start: 10-30-2017 Lipid panel Lipid Screening [facility] Start: 03-15-2017 End: 03-15-2017 Appointment Appointment [facility] Start: 03-15-2017 End: 03-21-2017 Dxa bone density study 1/> sites axial skel Dual-energy X-ray absorptiometry (DXA), bone density study, 1 or more sites; [facility] Start: 02-13-2017 End: 02-13-2017 Colonoscopy flx dx w/collj spec when pfrmd Colonoscopy [facility] Start: 11-16-2016 Screening for osteoporosis Bone Density Screening [facility] Start: 08-30-2016 Screening for malignant neoplasm of colon [facility] Start: 10-31-2015 Diabetes Screening Diabetes Screenin g [facility] Start: 11-07-2013 Screening for malignant neoplasm of breast Mammogram Screening [facility] Start: 2011 RSV Vaccine (1 - 1-dose 60+ series) RSV Vaccine (1 - 1-dose 60+ series) [facility] Start: 11-16-2001 Shingrix Vaccine (1 of 2) Shingrix Vaccine (1 of 2) [facility] Start: 11-16-1996 Screening for malignant neoplasm of colon [facility] Start: 11-16-1969 Hepatitis C screening Hepatitis C Sc [facility] End: 04-02-2025 OCT ANGIOGRAPHY OD (RIGHT EYE) OCT ANGIOGRAPHY OD (RIGHT EYE) OPHT Imaging Routine Macular hole of right eye Lamellar macular hole of left eye 1 Occurrences starting 10/10/2023 until 04/02/2025 [facility] Comment on above: 1 Occurrences starti ng 10/10/2023 until 04/02/2025 Immunizations Immunization Date Immunization Notes Care Provider Jayson perdomo 03-09-2009 tetanus toxoid, redu helen diphtheria toxoid, and acellular pertussis vaccine, adsorbed Matthew Chacko MD Work Phone: [facility] Work Phone: 07-28-1986 diphtheria and tetan us toxoids, adsorbed for pediatric use Matthew Chacko MD Work Phone: [facility] Payers Date Payer Category Payer Self-pay [id number] 2024 Unknown [id number] 2023 Medicare [id number] 2023 Unknown COURTNEY VALDEZ ME DICARE SUPPLEMENT [id number] 2023-Present [phone] [address] [place] [address] Indemnity [id number] 2016 Medicare [id number] 2016 Medicare MEDICARE MEDICAR E A AND B [id number] 2016-Present [phone] [place] [address] Medicare [id number] Unknown [id number] Social History Date Type Detail Facility Start: 12-28-2020 End: 09-19-2022 Tobacco smoking status NHIS Unknown if ever smoked [facility] Start: 1950 Sex Assigned At Female 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 Start: 1950 Sex Assigned At Not on file [facility] Gender identity Not on file [facility] inic Progress note 10-10-2023 Note Date & Type Note Facility 10-10-2023 Note HNO ID: [id number] Author: MATTHEW CHACKO MD Service: ? Author Type: Physician Type: Progress Notes Filed: 10/10/2023 09:18 Note Text: Macular hole right eye -Patient underwent CEIOL right eye at [facility] on 08/09/23 -During the surgery, crystalline lens dropped to posterior segment -Saw Dr. Stefan Recinos of [facility] who initially recommend observation, but then performed Pars plana vitrectomy (PPV) on 09/05/23 due to inflammation and cystoid macular edema. 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 I suspect the only way this could be potentially fixed is with an autologous retinal transplant, which carries risk of Retinal detachment , PVR, vitreous hemorrhage etc. There is also a higher risk of surgical failure and that the vision may not improve even if surgery is anatomically successful -After discussion, patient wishes to observe Submacular hemorrhage right eye -Inferior SMH -Possibly due to surgical trauma vs CNVM from Age related macular degeneration -Recommend close observation and obtaining OCTA at next visit Lamellar hole left eye -Does not appear to be visually significant -Recommend observation now that this is the better seeing eye Pseudophakia, both eyes - Intraocular lens well-centered - Plan: observe Nonexudative Age related macular degeneration intermediate Stage, both eyes -Smoking status: -Start AREDS2 twice a day -Wet Age related macular degeneration conversion precautions given. Patient instructed to call SADIE if new distortion or blind spot arises Follow Up: 1 month for dilated fundus exam, OCT both eyes, OCTA right eye I have confirmed and edited as necessary the relevant HPI, ophthalmic history, ROS, and exam findings as obtained by others. I have seen and examined this patient. I have discussed the case and the management of this patient's care with the Resident, if applicable. I also have reviewed and agree with the assessment and plan as stated above and agree with all of its relevant components. [facility] Clinical Note 10-10-2023 Note Date & Type Note Facility 10-10-2023 Note Date of Procedure 10/10/2023. 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 Interpretation Right Eye Findings include Macular hole. Left Eye Findings include Lamellar hole. Interval Change Right Eye Initial. Left Eye Initial. ZEISS History of Present illness Narrative 10-10-2023 Matthew Chacko MD - 10/10/2023 8:00 AM EDT Note Date & Type Note Facility 10-10-2023 History of Presen t illness Narrative Macular hole right eye -Patient underwent CEIOL right eye at [facility] on 08/09/23 -During the surgery, crystalline lens dropped to posterior segment -Saw Dr. Stefan Recinos of [facility] who initially recommend observation, but then performed Pars plana vitrectomy (PPV) on 09/05/23 due to inflammation and cystoid macular edema. 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 I suspect the only way this could be potentially fixed is with an autologous retinal transplant, which carries risk of Retinal detachment , PVR, vitreous hemorrhage etc. There is also a higher risk of surgical failure and that the vision may not improve even if surgery is anatomically successful -After discussion, patient wishes to observe Submacular hemorrhage right eye -Inferior SMH -Possibly due to surgical trauma vs CNVM from Age related macular degeneration -Recommend close observation and obtaining OCTA at next visit Lamellar hole left eye -Does not appear to be visually significant -Recommend observation now that this is the better seeing eye Pseudophakia, both eyes - Intraocular lens well-centered - Plan: observe Nonexudative Age related macular degeneration intermediate Stage, both eyes -Smoking status: -Start AREDS2 twice a day -Wet Age related macular degeneration conversion precautions given. Patient instructed to call SADIE if new distortion or blind spot arises Follow Up: 1 month for dilated fundus exam, OCT both eyes, OCTA right eye I have confirmed and edited as necessary the relevant HPI, ophthalmic history, ROS, and exam findings as obtained by others. I have seen and examined this patient. I have discussed the case and the management of this patient's care with the Resident, if applicable. I also have reviewed and agree with the assessment and plan as stated above and agree with all of its relevant components. documented in this encounter [facility] Evaluation note Note Date & Type Note Facility Evaluation note No assessment information availa [facility] Work Phone: Evaluation note Note Date & Type Note Facility Evaluation note Diagnosis Macular hole of right eye- Primary Macular cyst, hole, or pseudohole of retina Lamellar macular hole of left eye Macular cyst, hole, or pseudohole of retina documented in this encounter [facility] Advance Directives No Advanced Directives Records Found Advance Directive Response Recorded Date/ Time Advance Directives Yes February 28, 2014 1:23pm Living Will Yes December 28 10:14pm Power of Blacktop Paver Operator Yes December 28 10:14pm Advance Directive Response Recorded Date/ Time Advance Directives Yes February 28, 2014 1:23pm Living Will No September 14, 2022 9: 24am Power of Blacktop Paver Operator No September 14, 2022 9:24am Chief Complaint and Reason for Visit Chief Complaint SCREENING Chief Complaint LAB WORK SCREENING Family History No Family History Records Found Relationship Condition Age at Onset Recorded Date/T javed father Malignant neoplasm of colon Unknown grandmother Malignant neoplasm of colon Unknown grandfather Malignant neoplasm of colon Unknown Summary Purpose Additional Source Comments Goals (unrecognized section and content) Goals may be documented in a n alternate sectionGoals may be documented in an alternate sectionGoals may be documented in an alternate sectionGoals may be documented in an alternate section Care Teams (unrecognized sec tion and content) Team Status: Active Member Role Status Dates Dr. Cristopher Arriola MD Family Provider Active Dr. Katty Penn MD Primary Care Provider Active Team Status: Active Member Role Status Dates Dr. Katty Penn MD Primary Care Prov ider, Attending Provider, Referring Provider Active Team Status: Inactive Member Role Status Dates Dr. Katty Penn MD Primary Care Prov ider, Attending Provider, Referring Provider Active Source Comments (unrecognize d section and content) In the event this informatio n is protected by the Federal Confidentiality of Alcohol and Drug Abuse Patient Records regulations: The Federal rules restrict any use of the information to criminally investigate or prosecute any alcohol or drug abuse patient.[facility] Reason for Visit (unrecogniz ed section and content) Reason Comments Macular Hole Evaluation INFORMATION SOURCE (unrecogn ized section and content) DATE CREATED AUTHOR 10/11/2023 [facility] DATE CREATED AUTHOR AUTHOR'S ORGANIZ ATION 03/05/2024 [facility] [place] FOR RECORDS PERTAINING TO PATIENTS WHO ARE OR HAVE BEEN ENROLLED IN A CHEMICAL DEPENDENCY/SUBSTANCEABUSE PROGRAM, SOME INFORMATION MAY BE OMITTED. This clinical summary was aggregated from multiple sources. Caution should be exercised in using it in the provision of clinical care. This summary normalizes information from multiple sources, and as a consequence, information in this document may materially change the coding, format and clinical context of patient data. In addition, data may be omitted in some cases. CLINICAL DECISIONS SHOULD BE BASED ON THE PRIMARY CLINICAL RECORDS. [email or web address] provides no warranty or guarantee of the accuracy or completeness of information in this document.
== END | disposition home or self-care (01) ==
LOC: MTLAB 12:54
PROVIDERS: PCP Family Medicine; Referring Provider Family Medicine; Visit Provider Family Medicine
DX: Z00.00 Encounter for general adult medical examination without abnormal findings (principal); L40.9 Psoriasis, unspecified; M25.551 Pain in right hip
CPT/HCPCS: 36415; 73502; 80053; 80061; 85025

== ENCOUNTER → 2025-02-10 | Outpatient (CLI) | payer MEDICARE, SELFPAY ==
--- NOTE | 2025-02-10 14:25 | BI_ITS ---
EXAM: SCRN MAMM (CAD)W/GHASSAN BILAT DATE: 02/10/2025 CLINICAL HISTORY: F, Age 74 y/o , SCREENING TECHNIQUE: Procedure Code: [id number] Modality: MG Procedure: SCRN MAMM (CAD)W/GHASSAN BILAT COMPARISON: Prior exam(s) were compared FINDINGS: TISSUE DENSITY: The breasts are heterogeneously dense, which may obscure small masses. Bilateral Breast Mammographic Findings: No suspicious masses, calcifications or other abnormalities are identified. BI/SCRN MAMM (CAD)W/GHASSAN BILAT IMPRESSION: No mammographic evidence of malignancy in either breast OVERALL FINAL ASSESSMENT BI-RADS 1: NEGATIVE. RECOMMENDATION: Routine annual follow-up in 1 Year Additional Recommendation none A letter with findings and recommendations will be mailed to the patient. Reading Location: [id number]
--- NOTE | 2025-02-10 14:25 | BI_ITS ---
EXAM: SCRN MAMM (CAD)W/GHASSAN BILAT DATE: 02/10/2025 CLINICAL HISTORY: F, Age 74 y/o , SCREENING TECHNIQUE: Procedure Code: [id number] Modality: MG Procedure: SCRN MAMM (CAD)W/GHASSAN BILAT COMPARISON: Prior exam(s) were compared FINDINGS: TISSUE DENSITY: The breasts are heterogeneously dense, which may obscure small masses. Bilateral Breast Mammographic Findings: No suspicious masses, calcifications or other abnormalities are identified. BI/SCRN MAMM (CAD)W/GHASSAN BILAT IMPRESSION: No mammographic evidence of malignancy in either breast OVERALL FINAL ASSESSMENT BI-RADS 1: NEGATIVE. RECOMMENDATION: Routine annual follow-up in 1 Year Additional Recommendation none A letter with findings and recommendations will be mailed to the patient. Reading Location: [id number]
== END | disposition home or self-care (01) ==
LOC: OPBI 14:24
PROVIDERS: PCP Family Medicine; Referring Provider Family Medicine; Visit Provider Family Medicine
DX: Z12.31 Encounter for screening mammogram for malignant neoplasm of breast (principal)
CPT/HCPCS: 77063; 77067